=== PATIENT | female | born 1940 | race Caucasian/White ===

== ENCOUNTER 2019-05-28 07:50 | Inpatient (IN) ==
--- NOTE | 2019-05-28 07:58 | Emergency Department Note ---
Disposition Clinical Impression: Shortness of breath, Elevated troponin, Acute electrocardiogram changes Disposition: Admitted As Inpatient Referrals: Jerry De Leon DO [Primary Care Provider] - Forms: ED Satisfaction Letter Time of Disposition: 11:26 SOB HPI - General Chief Complaint: ED Shortness of Breath/Dyspnea Stated Complaint: shortness of breath Time Seen by Provider: 05/28/19 07:55 Source: patient, family Mode of arrival: ambulatory Limitations: no limitations Nursing Notes Reviewed: Yes Vital Signs Reviewed: Yes - History of Present Illness 78F with PMHx of HTN presents to the ED with worsening shortness of breath over the past several months. Pt states this morning when she got up to get out of bed she got more short of breath and was unable to catch her breath, therefore she got scared and had her family bring her into the emergency department. She has been dealing with a lot of stress over the past several months and just attended her 's yesterday. Patient denies having any chest pain at this time but does admit to chest tightness. She does not have any other known medical conditions. She denies fever, chills, recent illnesses, abdominal pain, nausea and vomiting. She has had a nonproductive cough on and off for the past several months. - Related Data Home Medications Medication Instructions Recorded Confirmed Hydrochlorothiazide 05/28/19 Lisinopril 05/28/19 Metoprolol 05/28/19 Allergies Allergy/AdvReac Type Severity Reaction Status Date / Time Penicillins Allergy Hives Verified 05/28/19 07:54 All systems ED: reviewed and negative except as stated. Review of Systems: As Per HPI Constitutional: Denies: fever, chills, weakness Cardiovascular: Reports: chest pain (tightness), dyspnea on exertion. Denies: palpitations, edema, paroxysmal nocturnal dyspnea Respiratory: Reports: cough, dyspnea. Denies: wheezes, sputum production Gastrointestinal: Denies: abdominal pain, nausea, vomiting, diarrhea Musculoskeletal: Denies: back pain, neck pain Integumentary: Denies: rash Endocrine: Reports: fatigue Past Medical History - Past Medical History Attestation: Yes The following information was validated with the patient. Source: patient Medical history: Reports: hypertension Physical Exam - General Limitations: no limitations General appearance: alert, anxious (tearful) - Head Head exam: atraumatic, normocephalic - Eye Eye exam: Present: normal appearance, PERRL, EOMI - Chest Chest inspection: Present: normal inspection. Absent: tenderness, rash - Respiratory Respiratory exam: Present: wheezes (mild end expiratory wheezes with good a iration). Absent: respiratory distress - Cardiovascular Cardiovascular exam: Present: regular rate, normal rhythm - Abdominal Exam Abdominal exam: Present: soft, Non-Tender. Absent: distention, guarding, rebound, rigidity - Extremities Exam Extremities exam: Present: normal inspection. Absent: tenderness, pedal edema, calf tenderness - Neurological Exam Neurological exam: Present: alert, oriented X3 - Psychiatric Psychiatric exam: Present: anxious (tearful) - Skin Skin exam: Present: warm, dry, intact Course Vital Signs Temperature 97.6 F 05/28/19 07:51 Pulse Rate 90 05/28/19 07:51 Respiratory Rate 20 05/28/19 07:51 Blood Pressure 206/131 05/28/19 07:51 O2 Sat by Pulse Oximetry 94 05/28/19 07:51 Temperature 97.6 F 05/28/19 08:20 Pulse Rate 56 05/28/19 11:17 Respiratory Rate 18 05/28/19 11:17 Blood Pressure 152/51 05/28/19 11:17 O2 Sat by Pulse Oximetry 95 05/28/19 11:17 Oxygen Delivery Oxygen Delivery Room Air Shortness of Breath/Dyspnea - [facility] [place] Narrative Medical decision making narrative: Patient presents with worsening shortness of breath with exertion over the past several months which acutely worsened today. We will obtain a cardiac workup. 845 - patient's troponin is elevated at 0.13 and BNP slightly elevated at 269. EKG shows a new left bundle-branch block when compared to previous EKG from 2007. We will consult with cardiology for help with management of this patient. 900 - spoke with Dr. Vargas who recommends a stat limited echocardiogram due to the patient's EKG changes and troponin. Chest x-ray shows acute on chronic pulmonary edema. All of the labs are within normal limits. We will administer a dose of Lasix, full strength aspirin and Heparin. Dr. Vargas states that if there are any wall motion abnormalities on the stat echo he will plan on taking the patient to the microbiological lab technician. 1046 - pts echo was read as normal. Spoke with Dr. Stephens and the patient has been accepted to the hospital pending the cat scan results. 1126 - CTA does not demonstrate PE. Pt will be admitted at this time - Medical Records Medical records reviewed: Yes I reviewed the patient's medical records. - Lab Data Lab results reviewed: Yes I reviewed the patient's lab results. Result diagrams: 05/28/19 08:19 05/28/19 08:19 Lab Results 05/28/19 05/28/19 05/28/19 Range/Units 08:19 08:19 08:19 WBC 8.2 (4.3-11.1) K/mcL RBC 3.90 (3.82-4.97) M/mcL Hgb 11.7 (11.5-15.4) g/dL Hct 35.4 (35.3-44.9) % MCV 90.8 (83.0-100.0) fL MCH 30.0 (28.0-33.3) pg MCHC 33.1 (31.6-35.5) g/dL RDW 13.7 (11.5-14.5) % Plt Count 281 (140-400) K/mcL MPV 10.5 (9.4-12.4) fL Immature Gran % 0.4 (0-4) % Seg Neutrophils % 55.2 % Lymphocytes % 32.3 % Monocytes % 7.6 % Eosinophils % 3.9 % Basophils % 0.6 % Neutrophils # 4.5 (1.6-8.9) K/mcL Lymphocytes # 2.6 (0.6-4.6) K/mcL Monocytes # 0.6 (0.0-1.3) K/mcL Eosinophils # 0.3 (0.0-0.6) K/mcL Basophils # 0.1 (0.0-0.2) K/mcL PT (9.4-12.1) Seconds INR D-Dimer (0-500) ng/mLFEU Heparin Anti-Xa, Unfract (0.30-0.70) IU/mL Sodium 140 (136-145) mEq/L Potassium 3.8 (3.5-5.1) mEq/L Chloride 104 (98-107) mEq/L Carbon Dioxide 27 (23-29) mEq/L BUN 24 H (8-23) mg/dL Creatinine 0.90 (0.60-1.20) mg/dL Est GFR ( Amer) > 60 (> 60) Est GFR (Non-Af Amer) > 60 (> 60) BUN/Creatinine Ratio 27 H (6-26) Glucose 166 H (70-105) mg/dL Calculated Osmolality 298 (280-300) Calcium 9.6 (8.6-10.3) mg/dL Troponin I 0.13 H* (< 0.04) ng/mL B-Natriuretic Peptide 269 H (Less than 100) pg/mL 05/28/19 Range/Units 08:19 WBC (4.3-11.1) K/mcL RBC (3.82-4.97) M/mcL Hgb (11.5-15.4) g/dL Hct (35.3-44.9) % MCV (83.0-100.0) fL MCH (28.0-33.3) pg MCHC (31.6-35.5) g/dL RDW (11.5-14.5) % Plt Count (140-400) K/mcL MPV (9.4-12.4) fL Immature Gran % (0-4) % Seg Neutrophils % % Lymphocytes % % Monocytes % % Eosinophils % % Basophils % % Neutrophils # (1.6-8.9) K/mcL Lymphocytes # (0.6-4.6) K/mcL Monocytes # (0.0-1.3) K/mcL Eosinophils # (0.0-0.6) K/mcL Basophils # (0.0-0.2) K/mcL PT 11.4 (9.4-12.1) Seconds INR 1.0 D-Dimer 2057 H (0-500) ng/mLFEU Heparin Anti-Xa, Unfract 0.03 L (0.30-0.70) IU/mL Sodium (136-145) mEq/L Potassium (3.5-5.1) mEq/L Chloride (98-107) mEq/L Carbon Dioxide (23-29) mEq/L BUN (8-23) mg/dL Creatinine (0.60-1.20) mg/dL Est GFR ( Amer) (> 60) Est GFR (Non-Af Amer) (> 60) BUN/Creatinine Ratio (6-26) Glucose (70-105) mg/dL Calculated Osmolality (280-300) Calcium (8.6-10.3) mg/dL Troponin I (< 0.04) ng/mL B-Natriuretic Peptide (Less than 100) pg/mL - Radiology Data Radiology results reviewed: Yes I reviewed the patient's radiology results. - EKG Data EKG attestation: Yes I reviewed and interpreted this EKG. EKG results narrative: EKG obtained at 809 on 05/28/2019 Heart 66 bpm, MN interval 23, QRS duration 166, QT 481, QTC 54 Sinus rhythm with left bundle branch block. No signs of ST segment elevations or depressions meeting sgarbossa criteria. Left bundle is new when compared to previous EKG dated 12/02/2007.
[2019-05-28 08:32] LABS: Basophils # 0.1 K/mcL (0.0-0.2); Basophils % 0.6 %; Eosinophils # 0.3 K/mcL (0.0-0.6); Eosinophils % 3.9 %; Hematocrit 35.4 % (35.3-44.9); Hemoglobin 11.7 g/dL (11.5-15.4); Immature Granulocytes % 0.4 % (0-4); Lymphocytes # 2.6 K/mcL (0.6-4.6); Lymphocytes % 32.3 %; Mean Corpuscular HGB Conc 33.1 g/dL (31.6-35.5); Mean Corpuscular Volume 90.8 fL (83.0-100.0); Mean Platelet Volume 10.5 fL (9.4-12.4); Monocytes # 0.6 K/mcL (0.0-1.3); Monocytes % 7.6 %; Neutrophils # 4.5 K/mcL (1.6-8.9); Platelet Count 281 K/mcL (140-400); Red Cell Distribution Width 13.7 % (11.5-14.5); Segmented Neutrophils % 55.2 %; White Blood Count 8.2 K/mcL (4.3-11.1)
[2019-05-28 08:52] LABS: BUN/Creatinine Ratio 27 (6-26); Blood Urea Nitrogen 24 mg/dL (8-23); Calcium 9.6 mg/dL (8.6-10.3); Carbon Dioxide 27 mEq/L (23-29); Chloride 104 mEq/L (98-107); Glucose 166 mg/dL (70-105); Osmolality,Calculated 298 (280-300); Potassium 3.8 mEq/L (3.5-5.1); Sodium 140 mEq/L (136-145); Troponin I 0.13 ng/mL (< 0.04); eGFR For African Americans > 60 (> 60); eGFR For Non-African Americans > 60 (> 60)
[2019-05-28] MEDS ORDERED: Aspirin 81 MG TAB.CHEW PO ONE (09:07)
[2019-05-28] MEDS ORDERED: Furosemide 20 MG/2 ML VIAL IVP ONE (09:07)
--- NOTE | 2019-05-28 09:10 | Emergency Department Note ---
Disposition Clinical Impression: Shortness of breath, Elevated troponin, Acute electrocardiogram changes Disposition: Admitted As Inpatient Condition: Fair Referrals: Jerry De Leon DO [Primary Care Provider] - Forms: ED Satisfaction Letter Time of Disposition: 11:40 General Adult HPI - General Chief complaint: ED Shortness of Breath/Dyspnea Stated complaint: shortness of breath Time Seen by Provider: 05/28/19 07:55 Source: patient, family Mode of arrival: ambulatory Limitations: no limitations Nursing Notes Reviewed: Yes Vital Signs Reviewed: Yes - History of Present Illness Pain Scale: 0 - Related Data Home Medications Medication Instructions Recorded Confirmed Hydrochlorothiazide 05/28/19 Lisinopril 05/28/19 Metoprolol 05/28/19 Allergies Allergy/AdvReac Type Severity Reaction Status Date / Time Penicillins Allergy Hives Verified 05/28/19 07:54 Constitutional: Denies: fever, chills, weakness Past Medical History - Past Medical History Medical history: Reports: hypertension Psychiatric history: Reports: no psych history - Social History Smoking Status: Never smoker Smokeless Tobacco Status: No Alcohol use: Reports: none Drug use: Reports: none Physical Exam - General Limitations: no limitations General appearance: alert Course Vital Signs Temperature 97.6 F 05/28/19 07:51 Pulse Rate 90 05/28/19 07:51 Respiratory Rate 20 05/28/19 07:51 Blood Pressure 206/131 05/28/19 07:51 O2 Sat by Pulse Oximetry 94 05/28/19 07:51 Temperature 97.6 F 05/28/19 08:20 Pulse Rate 56 05/28/19 11:17 Respiratory Rate 18 05/28/19 11:17 Blood Pressure 152/51 05/28/19 11:17 O2 Sat by Pulse Oximetry 95 05/28/19 11:17 Oxygen Delivery Oxygen Delivery Room Air Medical Decision Making - Lab Data Result diagrams: 05/28/19 08:19 05/28/19 08:19 Lab Results 05/28/19 05/28/19 05/28/19 Range/Units 08:19 08:19 08:19 WBC 8.2 (4.3-11.1) K/mcL RBC 3.90 (3.82-4.97) M/mcL Hgb 11.7 (11.5-15.4) g/dL Hct 35.4 (35.3-44.9) % MCV 90.8 (83.0-100.0) fL MCH 30.0 (28.0-33.3) pg MCHC 33.1 (31.6-35.5) g/dL RDW 13.7 (11.5-14.5) % Plt Count 281 (140-400) K/mcL MPV 10.5 (9.4-12.4) fL Immature Gran % 0.4 (0-4) % Seg Neutrophils % 55.2 % Lymphocytes % 32.3 % Monocytes % 7.6 % Eosinophils % 3.9 % Basophils % 0.6 % Neutrophils # 4.5 (1.6-8.9) K/mcL Lymphocytes # 2.6 (0.6-4.6) K/mcL Monocytes # 0.6 (0.0-1.3) K/mcL Eosinophils # 0.3 (0.0-0.6) K/mcL Basophils # 0.1 (0.0-0.2) K/mcL PT (9.4-12.1) Seconds INR D-Dimer (0-500) ng/mLFEU Heparin Anti-Xa, Unfract (0.30-0.70) IU/mL Sodium 140 (136-145) mEq/L Potassium 3.8 (3.5-5.1) mEq/L Chloride 104 (98-107) mEq/L Carbon Dioxide 27 (23-29) mEq/L BUN 24 H (8-23) mg/dL Creatinine 0.90 (0.60-1.20) mg/dL Est GFR ( Amer) > 60 (> 60) Est GFR (Non-Af Amer) > 60 (> 60) BUN/Creatinine Ratio 27 H (6-26) Glucose 166 H (70-105) mg/dL Calculated Osmolality 298 (280-300) Calcium 9.6 (8.6-10.3) mg/dL Troponin I 0.13 H* (< 0.04) ng/mL B-Natriuretic Peptide 269 H (Less than 100) pg/mL 05/28/19 Range/Units 08:19 WBC (4.3-11.1) K/mcL RBC (3.82-4.97) M/mcL Hgb (11.5-15.4) g/dL Hct (35.3-44.9) % MCV (83.0-100.0) fL MCH (28.0-33.3) pg MCHC (31.6-35.5) g/dL RDW (11.5-14.5) % Plt Count (140-400) K/mcL MPV (9.4-12.4) fL Immature Gran % (0-4) % Seg Neutrophils % % Lymphocytes % % Monocytes % % Eosinophils % % Basophils % % Neutrophils # (1.6-8.9) K/mcL Lymphocytes # (0.6-4.6) K/mcL Monocytes # (0.0-1.3) K/mcL Eosinophils # (0.0-0.6) K/mcL Basophils # (0.0-0.2) K/mcL PT 11.4 (9.4-12.1) Seconds INR 1.0 D-Dimer 2057 H (0-500) ng/mLFEU Heparin Anti-Xa, Unfract 0.03 L (0.30-0.70) IU/mL Sodium (136-145) mEq/L Potassium (3.5-5.1) mEq/L Chloride (98-107) mEq/L Carbon Dioxide (23-29) mEq/L BUN (8-23) mg/dL Creatinine (0.60-1.20) mg/dL Est GFR ( Amer) (> 60) Est GFR (Non-Af Amer) (> 60) BUN/Creatinine Ratio (6-26) Glucose (70-105) mg/dL Calculated Osmolality (280-300) Calcium (8.6-10.3) mg/dL Troponin I (< 0.04) ng/mL B-Natriuretic Peptide (Less than 100) pg/mL Critical Care Time Critical Care Time: Yes Total Critical Care Time: 35 Attestation: Critical care performed: Time is exclusive of separately billable procedures. Time includes: direct patient care, patient reassessment, coordination of patient care, interpretation of data (laboratory data, radiology data, and respiratory data), review of patient's medical records, medical consultation and documentation of patient care. Procedures included in critical care time: Procedures excluded from critical care time: Attestation Statement - Attestation Attestation: I examined this patient and my medical decision-making was reviewed with the Resident Physician. I agree with the documented findings, disposition and treatment plan as described except to the extent set forth below. Patient to the ED for shortness of breath. Patient's been short of breath for the past couple months. She has been preoccupied taking care of her dying . His was yesterday. She has had an increase in her shortness of breath and dyspnea on exertion. No history of heart failure. On examination she is in no acute distress. She is upset and tearful. Lungs are diminished but clear. No pedal edema. Plan. Cardiac workup. Patient with a new onset left bundle branch block. Her troponin is elevated platelet 3. She is reevaluated and is not having any chest pain. We did discuss the patient with cardiology who will see in consult. Aspirin given. We will admit to medicine. EKG was reviewed with the resident. CTA reviewed and negative for PE. Echocardiogram does not reveal any wall motion abnormalities that would be consistent with ischemia. Patient is admitted to medicine. Chest X-Ray 05/28/19 07:58 IMPRESSION: 1. Mild increased interstitial markings since prior examination for which an acute on chronic process cannot be excluded. D/ / Dory Eden MD / Dory Eden MD Interpreting Provider: Dory Eden MD Chest X-Ray 05/28/19 07:58 IMPRESSION: 1. Mild increased interstitial markings since prior examination for which an acute on chronic process cannot be excluded. D/ / Dory Eden MD / Dory Eden MD Interpreting Provider: Dory Eden MD Echocardiogram Limited Views 05/28/19 09:02 Impressions: LVEF 60-65%. Normal LV chamber size and function. Asymmetric hypertrophy of the basal septum. Atypical septal motion consistent with bundle branch block. Left Ventricular Wall Motion: Rest Echo Findings All wall segments showed normal motion. Findings: Study Quality * Technically adequate exam. ECG Findings * Sinus rhythm with BBB. Left Ventricle * LVEF 60-65%. * Normal LV chamber size and function. * Asymmetric hypertrophy of the basal septum. * Atypical septal motion consistent with bundle branch block. Right Ventricle * Normal right ventricular structure and function. Aorta * Normally sized aortic root. Pericardium * The pericardium appears normal. Chest CTA 05/28/19 09:56 IMPRESSION: 1. No evidence of pulmonary embolism 2. Findings compatible with interstitial pulmonary edema and trace pleural effusions D/ / Deuce Nielsen MD / Deuce Nielsen MD Interpreting Provider: Deuce Nielsen MD
[2019-05-28] MEDS ORDERED: *HR* Heparin 5,000 UNIT/ML VIAL IVP PRN ×2 (09:12)
[2019-05-28] MEDS ORDERED: *HR* Heparin 5,000 UNIT/ML VIAL IVP ONE (09:12)
[2019-05-28 09:34] LABS: Heparin anti-factor XA UFH 0.03 IU/mL (0.30-0.70)
[2019-05-28 09:35] LABS: Prothrombin Time 11.4 Seconds (9.4-12.1)
[2019-05-28] MEDS ORDERED: Perflutren Lipid Microsphere 1.3 ML in 0.9 % Sodium Chloride 8.7 ML IVP ONE (09:40)
[2019-05-28] MEDS ORDERED: 0.9 % Sodium Chloride 250 ML ONE (09:49)
[2019-05-28] MEDS ORDERED: Isovue-370 500 ML BOTTLE IVP ONE (09:56)
[2019-05-28] MEDS: Heparin 25,000 UNIT/250 ML D5W 25,000 UNIT/250 ML IV.SOLN IVC SCH (10:04)
[2019-05-28] MEDS ORDERED: Ondansetron 4 MG/2 ML VIAL IVP PRN (11:39)
[2019-05-28] MEDS ORDERED: *HR* HYDROcodone/Acet 5/325 mg TABLET PO PRN (11:39)
[2019-05-28] MEDS ORDERED: Acetaminophen 325 MG TABLET PO PRN (11:39)
[2019-05-28] MEDS ORDERED: Naloxone 0.4 MG/ML INJ IVP PRN (11:39)
--- NOTE | 2019-05-28 11:51 | Internal Med History&Physical ---
Date of Encounter: 05/28/19 Time of Encounter: 11:48 Internal Medicine - H&P: HPI Chief complaint: SOB Admitted From: Emergency Dept History of present illness: Keeley Chan is a 78 F w hx HTN, obesity, who p/w SOB. Symptoms started several months ago but are acutely worse today. Pt woke up this AM w SOB, and with any exertion became profoundly dyspneic and thus her family brought her to ED. For background, her 's was yesterday, and the patient is certainly sad/upset/anxious about that. However, she and her daughter report months (probably closer to a year) of getting winded with exertion, specifically being unable to get around the hallways in the hospital last year when first hospitalized, and progressively worsening slowly since. She specifically denies any chest pain or tightness, but does state that with exertion like cooking she'll break out into drenching sweats and sometimes has mild nausea with it. Denies pedal edema. Does have dry cough which she thinks is from her lisinopril. No fevers, vomiting, abd pain, rash. In the ED, vitals T 97.6, HR 90, RR 20, SBP 206, satting 94+% on RA. ECG w new LBBB when compared to prior >10y ago. CXR shows increased interstitial markings suggestive of possible edema. Labs notable for Hb 12, INR 1, D-dimer 2000, BUN 24, Cr 0.9, BG 166, Trop 0.13, BNP 270. Follow up CTPE unremarkable for PE but does suggest mild pulmonary edema and trace b/l pleural effusions. Pt seen by cardio in ED, who rec'd starting hep gtt and admit for gentle diuresis and likely LHC in 1-2 days. Past medical, surgical, social, and family histories reviewed and updated as below. Past Med Surg Social Fam HX - Past Medical History Medical history: hypertension Psychiatric history: no psych history - Social History Smoking Status: Never smoker Smokeless Tobacco Status: No Alcohol use: none Drug use: none - Family History Mother Living Status: Hx Family Cancer: Yes Hx Family Endocrine Disorder: Yes Father Living Status: Hx Family Cardiac Disorders: Yes Internal Medicine - H&P: Meds Aspirin [Lo-Dose Aspirin EC] 81 mg PO DAILY 05/28/19 [History] Calcium Carbonate [Calcium] 500 mg PO DAILY 05/28/19 [History] Lisinopril [Zestril] 40 mg PO DAILY 05/28/19 [History] Metoprolol Succinate [Toprol Xl] 50 mg PO DAILY 05/28/19 [History] hydroCHLOROthiazide [Hydrochlorothiazide] 25 mg PO DAILY 05/28/19 [History] Allergy/AdvReac Type Severity Reaction Status Date / Time Penicillins Allergy Hives Verified 05/28/19 12:31 All Systems PM: A 10-system review of systems was performed and is negative for pertinent findings except as documented above in the HPI. - Constitutional Vitals: Temp Pulse Resp BP Pulse Ox 97.6 F 56 18 152/51 95 05/28/19 08:20 05/28/19 11:17 05/28/19 11:17 05/28/19 11:17 05/28/19 11:17 Exam: General: NAD, AAOx3, good eye contact, visibly anxious, occasional audible whe ezing and tachypneic although not working to breathe Head: Atraumatic, normocephalic. Face symmetric Eyes: EOMI, sclerae anicteric ENT: Mucous membranes moist. Normal oral mucosa. Trachea midline. Thoracic: No visible chest wall deformities. Normal breath sounds b/l, no wheezing or crackles Cardio: Normal S1 and S2, regular rate and rhythm, no murmurs. No JVD Abdomen: Soft, nontender, nondistended. Bowel sounds present. Extremities: Warm, well perfused. DP pulses 2+ b/l. No clubbing, cyanosis. Mild nonpitting edema b/l legs Skin: Intact. No rashes, bruises, or ulcers Neuro: Awake, fully oriented. Good memory, concentration, attention. Speech fluent. CN II-XII grossly intact. Strength 5/5 in b/l UE and LE Internal Med - H&P Results - Labs CBC & Chem 7: 05/28/19 08:19 05/28/19 08:19 Labs: Short CBC 05/28/19 Range/Units 08: WBC 8.2 (4.3-11.1) K/mcL Hgb 11.7 (11.5-15.4) g/dL Hct 35.4 (35.3-44.9) % Plt Count 281 (140-400) K/mcL Neutrophils # 4.5 (1.6-8.9) K/mcL BMP 05/28/19 08:19 Sodium 140 Potassium 3.8 Chloride 104 Carbon Dioxide 27 BUN 24 H Creatinine 0.90 Glucose 166 H Calcium 9.6 Cardiac Enzymes 05/28/19 Range/Units 08:19 Troponin I 0.13 H* (< 0.04) ng/mL - Impressions ITS Impressions Chest X-Ray 05/28/19 07:58 IMPRESSION: 1. Mild increased interstitial markings since prior examination for which an acute on chronic process cannot be excluded. D/ / Dory Eden MD / Dory Eden MD Interpreting Provider: Dory Eden MD Echocardiogram Limited Views 05/28/19 09:02 Impressions: LVEF 60-65%. Normal LV chamber size and function. Asymmetric hypertrophy of the basal septum. Atypical septal motion consistent with bundle branch block. Left Ventricular Wall Motion: Rest Echo Findings All wall segments showed normal motion. Findings: Study Quality * Technically adequate exam. ECG Findings * Sinus rhythm with BBB. Left Ventricle * LVEF 60-65%. * Normal LV chamber size and function. * Asymmetric hypertrophy of the basal septum. * Atypical septal motion consistent with bundle branch block. Right Ventricle * Normal right ventricular structure and function. Aorta * Normally sized aortic root. Pericardium * The pericardium appears normal. Chest CTA 05/28/19 09:56 IMPRESSION: 1. No evidence of pulmonary embolism 2. Findings compatible with interstitial pulmonary edema and trace pleural effusions D/ / Deuce Nielsen MD / Deuce Nielsen MD Interpreting Provider: Deuce Nielsen MD - Summary of Assessment and Plan Summary of Assessment and Plan: Keeley Chan is a 78 F w hx HTN, obesity, who p/w SOB, ECG w new LBBB, and elevated trop, c/w NSTEMI, and also MINAYA, elevated BNP, and imaging showing pulm edema, c/w acute CHF. NSTEMI: ECG w new LBBB, trop elevated to 0.13. Stat TTE shows no WMA. - trend trops - check lipids, A1c - tele - ASA given - nitro SL prn pain - hep gtt - start lipitor 80 - continue home toprol 50, lisinopril 40 - Cardio consult for [facility] Acute HFpEF: - lasix 20 iv x1 per cardio and reassess later today HTN: uncontrolled, resume home meds today Obesity: BMI 35 PPx: hep gtt Tele: yes Activity: up ad nathan FEN: cardiac then NPO@MN, no MIVF Lines: PIV Consults: Cardio Code: Full Dispo: patient requires inpatient eval and management at this time, anticipate 2-3 days, will be homegoing
[2019-05-28] MEDS: Metoprolol XL (24 HR) Succ 50 MG TAB.ER.24H PO SCH (12:33)
[2019-05-28] MEDS: Lisinopril 20 MG TABLET PO SCH (12:33)
--- NOTE | 2019-05-28 13:56 | Cardiology Consult Note ---
Date of Encounter: 05/28/19 Time of Encounter: 13:52 Assessment and Plan (1) Shortness of breath Current Visit: Yes Status: Acute Possible angina equivalent with new EKG changes yet echocardiogram shows preserved ejection fraction. Gentle diuresis for mild pulmonary edema on chest x-ray in anticipation of possible LHC (2) Elevated troponin Current Visit: Yes Status: Acute Possible demand ischemia from shortness of breath and respiratory distress versus primary ischemia, we will trend cardiac enzymes. Echo shows preserved ejection fraction with no regional wall motion abnormalities. Once euvolemic patient likely will require an LHC prior to discharge. Start IV heparin ACS protocol Discussion w patient/family: The assessment and plan as outlined above was discussed with the patient and/or family members who expressed understanding and agreement. All questions were answered. Thank you for involving us in the care of your patient. Please call with any questions. History of Present Illness Consult date: 05/28/19 Consult reason: SOB Chief complaint: SOB History of present illness: Ms. Chan is a 78 year old female with no significant cardiac risk factors presents to the emergency department with increasing shortness of breath in the last few weeks with new onset of chest pain on arrival to the emergency department. Patient was noted to have a left bundle-branch block with no recent EKG compared to. A stat echocardiogram was obtained in the emergency department which showed a preserved ejection fraction hence patient was not taken emergently to the cardiac Stock Mover. Patient is significantly short of breath and in respiratory distress with a mildly elevated BNP and a troponin of 0.13. She is very anxious and likely is unable to lay flat with some mild pulmonary edema on her chest x-ray. We will continue to trend cardiac enzymes and diuresis gently to euvolemia and consider LHC when able to tolerate procedure. Patient also states chest pain has resolved yet she continues to be short of breath. Will follow-up with a stat troponin and next few hours to evaluate not trend of her troponins. Meanwhile patient will be diuresed in anticipation of a possible LHC Past Med Surg Social Fam HX - Past Medical History Medical history: arthritis, cancer, hypertension Psychiatric history: anxiety, depression - Past Surgical History Surgical History: cholecystectomy Additional surgical history: carpel tunnel, heart surgery, lumpectomy to left breast, lump removed from neck - Social History Smoking Status: Never smoker Smokeless Tobacco Status: No Alcohol use: none Drug use: none - Family History Mother Living Status: Hx Family Cancer: Yes Hx Family Endocrine Disorder: Yes Father Living Status: Hx Family Cardiac Disorders: Yes Medications and Allergies Aspirin [Lo-Dose Aspirin EC] 81 mg PO DAILY 05/28/19 [History] Calcium Carbonate [Calcium] 500 mg PO DAILY 05/28/19 [History] Lisinopril [Zestril] 40 mg PO DAILY 05/28/19 [History] Metoprolol Succinate [Toprol Xl] 50 mg PO DAILY 05/28/19 [History] hydroCHLOROthiazide [Hydrochlorothiazide] 25 mg PO DAILY 05/28/19 [History] Allergy/AdvReac Type Severity Reaction Status Date / Time Penicillins Allergy Hives Verified 05/28/19 12:31 All Systems Review: The remainder of the systems were reviewed and are negative Physical Examination Vital Signs, Last 4 Hours Temp Pulse Resp BP Pulse Ox 05/28/19 12:24 97.8 F 64 18 185/71 96 05/28/19 11:17 56 18 152/51 95 05/28/19 10:03 61 18 166/50 99 05/28/19 09:52 91 18 164/58 100 General: Conversant, No Apparent Distress HEENT: Atraumatic, Normocephaly, Mucus Membranes Moist Neck: No JVD, Normal carotid pulses Cardiac: Reg Rate and Rhythm, Normal S1 and S2, No Murmur Lungs: Normal Breath Sounds (Diminished air entry bibasilar), No Wheeze, Rales, Rhonchi Neuro: Alert and responsive, No focal deficits noted Abdomen: Soft, Non-Tender Skin: No rashes noted on visualized skin Musculoskeletal: No Chest Wall Tenderness Extremities: No Clubbing, No Cyanosis, No Edema, Normal Pulses Results 05/28/19 08:19 05/28/19 08:19 Lab Results 05/28/19 05/28/19 05/28/19 08:19 08:19 08:19 WBC 8.2 Hgb 11.7 Hct 35.4 Plt Count 281 INR D-Dimer Sodium 140 Potassium 3.8 Chloride 104 Carbon Dioxide 27 BUN 24 H Creatinine 0.90 Glucose 166 H Calcium 9.6 Troponin I 0.13 H* B-Natriuretic Peptide 269 H 05/28/19 08:19 WBC Hgb Hct Plt Count INR 1.0 D-Dimer 2057 H Sodium Potassium Chloride Carbon Dioxide BUN Creatinine Glucose Calcium Troponin I B-Natriuretic Peptide Consult Discharge Plan - Plan Referrals: Jerry De Leon DO [Primary Care Provider] -
--- NOTE | 2019-05-28 16:21 | Electrocardiograph Report ---
[place] [id number] Test Date: 2019-05-28 Pat Name: Keeley Chan Department: EXAM1 Room: 2NE19 Gender: F Transaction Coordinator: : 1940 Requested By: Mariposa Swartz Order Number: [id number] Reading MD: Abdirahman Jama Measurements Intervals Russell Rate: 66 P: 64 WI: 203 QRS: 34 QRSD: 166 T: 142 QT: 481 QTc: 504 Interpretive Statements Sinus rhythm Left bundle branch block Electronically Signed On 05-28-2019 16:19:29 EDT by Abdirahman Jama
[2019-05-29 03:50] LABS: Hematocrit 33.4 % (35.3-44.9); Mean Corpuscular HGB Conc 32.9 g/dL (31.6-35.5); Mean Corpuscular Hemoglobin 29.7 pg (28.0-33.3); Mean Corpuscular Volume 90.3 fL (83.0-100.0); Mean Platelet Volume 10.7 fL (9.4-12.4); Platelet Count 258 K/mcL (140-400); Red Cell Distribution Width 13.9 % (11.5-14.5); White Blood Count 10.2 K/mcL (4.3-11.1)
[2019-05-29 04:03] LABS: INR 1.1; Prothrombin Time 12.1 Seconds (9.4-12.1)
[2019-05-29 04:05] LABS: Activated Partial Thrombo Time 86.9 Seconds (26.0-36.0)
[2019-05-29 04:10] LABS: BUN/Creatinine Ratio 23 (6-26); Blood Urea Nitrogen 21 mg/dL (8-23); Calcium 9.1 mg/dL (8.6-10.3); Carbon Dioxide 27 mEq/L (23-29); Chloride 103 mEq/L (98-107); Chol/HDL Ratio 3.7 (0-4.9); Cholesterol 148 mg/dL (< 200); Glucose 145 mg/dL (70-105); HDL Cholesterol 40 mg/dL (40-59); LDL Cholesterol,Calculated 83 mg/dL (0-99); Magnesium 1.7 mg/dL (1.6-2.6); Osmolality,Calculated 294 (280-300); Potassium 3.6 mEq/L (3.5-5.1); Sodium 139 mEq/L (136-145); Triglycerides 123 mg/dL (< 150); eGFR For African Americans > 60 (> 60); eGFR For Non-African Americans 59 (> 60)
[2019-05-29 05:10] LABS: Estimated Average Glucose 209 mg/dl
[2019-05-29] MEDS ORDERED: Furosemide 20 MG/2 ML VIAL IVP ONE (08:24)
[2019-05-29] MEDS: Lisinopril 20 MG TABLET PO SCH (08:25)
[2019-05-29] MEDS: Aspirin Enteric Coated 81 MG Tablet PO SCH (08:25)
[2019-05-29] MEDS: Metoprolol XL (24 HR) Succ 50 MG TAB.ER.24H PO SCH (08:25)
[2019-05-29] MEDS ORDERED: Dextrose Gel 15 GM/37.5 ML TUBE PO PRN ×2 (08:49)
[2019-05-29] MEDS ORDERED: D5% in Water 1,000 ML IVC PRN (08:49)
[2019-05-29] MEDS ORDERED: *HR* Dextrose 50 % in Water (Syg) 50 ML SYRINGE IVP PRN (08:49)
[2019-05-29] MEDS: Heparin 25,000 UNIT/250 ML D5W 25,000 UNIT/250 ML IV.SOLN IVC SCH (09:23)
--- NOTE | 2019-05-29 09:25 | Internal Med Progress Note ---
Hospitalist Progress Note - Encounter Date of Encounter: 05/29/19 Time of Encounter: 08:15 - Subjective Interval History: H&P reviewed. 78-year-old female with Hx of HTN and obesity is admitted due to dyspnea on exertion and was found to have elevated troponin and mild decompensated heart failure. EKG showed new LBBB but the comparison EKG was done > 10 years ago. Feels marginally better after a dose of Lasix. Denies any chest pain, palpitation, lightheadedness, or nausea/vomiting. No fever overnight. - Exam Vitals: Temp Pulse Resp BP Pulse Ox 97.8 F 62 18 190/85 97 05/29/19 06:55 05/29/19 06:55 05/29/19 06:55 05/29/19 06:55 05/29/19 06:55 Exam: General: Alert and oriented, mild distress but able to speak in full sentences Cardiovascular:Normal S1 & S2, No JVD. Pulse regular. Lungs: Mild bibasilar crackles Abdomen:Soft, non-tender, no rigidity. Extremities:No deformity or swelling Neurological:Normal cognition and motor skills. Non-focal - Assessment and Plan (1) Elevated troponin Current Visit: Yes Status: Acute Assessment and Plan: Presented with acute on chronic dyspnea on exertion and was found to have mildly elevated trop of 0.13-0.13-0.16-0.17 EKG showed new LBBB but the comparison is from > 10 years ago echocardiogram showed preserved EF Started on hep gtt, continue. On aspirin, statin, beta yosef. appreciate cardiology input, for possible C today (2) Heart failure Current Visit: Yes Status: Acute Assessment and Plan: Echocardiogram results as above given 1 dose of IV Lasix, will continue IV 20mg QD (3) Accelerated hypertension Current Visit: Yes Status: Acute Assessment and Plan: Likely cause of elevated troponin and decompensated heart failure home meds resumed, will add norvasc 5mg as well PRN labetalol (4) Newly diagnosed diabetes Current Visit: Yes Status: Acute Assessment and Plan: A1c 8.9 Started on low-dose sliding scale. Will likely discharge on metformin. Diabetic education provided (5) Obesity (BMI 30.0-34.9) Current Visit: Yes Status: Chronic Assessment and Plan: Lifestyle modifications emphasized (6) DVT prophylaxis Current Visit: Yes Status: Acute Assessment and Plan: On heparin drip - Time Spent with Patient Total time spent is greater than 50% in coordination of care (as documented) at patient's floor/unit and/or counseling patient: 25 - 35 minutes Plan of Care Discussed with: patient Internal Medicine: Result - Labs CBC & Chem 7: 05/29/19 03:33 05/29/19 03:33 Labs: Short CBC 05/29/19 Range/Units 03:33 WBC 10.2 (4.3-11.1) K/mcL Hgb 11.0 L (11.5-15.4) g/dL Hct 33.4 L (35.3-44.9) % Plt Count 258 (140-400) K/mcL BMP 05/29/19 03:33 Sodium 139 Potassium 3.6 Chloride 103 Carbon Dioxide 27 BUN 21 Creatinine 0.92 Glucose 145 H Calcium 9.1 Cardiac Enzymes 05/28/19 05/28/19 05/29/19 Range/Units 14:39 20:26 03:33 Troponin I 0.13 H* 0.16 H* 0.17 H* (< 0.04) ng/mL - ABG Interpretation ABG results: PT/INR, D-dimer PT 12.1 Seconds (9.4-12.1) 05/29/19 03:33 D-Dimer 2057 ng/mLFEU (0-500) H 05/28/19 08:19 - Impressions Impressions Echocardiogram Limited Views 05/28/19 09:02 Impressions: LVEF 60-65%. Normal LV chamber size and function. Asymmetric hypertrophy of the basal septum. Atypical septal motion consistent with bundle branch block. Left Ventricular Wall Motion: Rest Echo Findings All wall segments showed normal motion. Findings: Study Quality * Technically adequate exam. ECG Findings * Sinus rhythm with BBB. Left Ventricle * LVEF 60-65%. * Normal LV chamber size and function. * Asymmetric hypertrophy of the basal septum. * Atypical septal motion consistent with bundle branch block. Right Ventricle * Normal right ventricular structure and function. Aorta * Normally sized aortic root. Pericardium * The pericardium appears normal. Chest CTA 05/28/19 09:56 IMPRESSION: 1. No evidence of pulmonary embolism 2. Findings compatible with interstitial pulmonary edema and trace pleural effusions D/ / Deuce Nielsen MD / Deuce Nielsen MD Interpreting Provider: Deuce Nielsen MD - VTE Documentation of Mechanical Device: Intermittent pneumatic compression device Consult Discharge Plan - Plan Referrals: Jerry De Leon DO [Primary Care Provider] - (2) Heart failure Qualifiers: Heart failure type: diastolic Heart failure chronicity: acute Qualified Code(s): I50.31 - Acute diastolic (congestive) heart failure
[2019-05-29] MEDS ORDERED: *HR* Labetalol 20 MG/4 ML SYRINGE IVP PRN (09:30)
[2019-05-29] MEDS ORDERED: amLODIPine 5 MG TABLET PO SCH (09:30)
--- NOTE | 2019-05-29 10:01 | Event Note ---
Date of Encounter: 05/29/19 Time of Encounter: 09:00 - Cardiology Event Note Laboratory Tests 05/28/19 05/28/19 05/28/19 08:19 08:19 14:39 Hgb Hct INR D-Dimer 2057 H Creatinine Est GFR (Non-Af Amer) Troponin I 0.13 H* 0.13 H* B-Natriuretic Peptide LDL Cholesterol, Calc 05/28/19 05/29/19 05/29/19 20:26 03:33 03:33 Hgb 11.0 L Hct 33.4 L INR 1.1 D-Dimer Creatinine Est GFR (Non-Af Amer) Troponin I 0.16 H* B-Natriuretic Peptide LDL Cholesterol, Calc 05/29/19 05/29/19 05/29/19 03:33 03:33 03:33 Hgb Hct INR D-Dimer Creatinine 0.92 Est GFR (Non-Af Amer) 59 L Troponin I 0.17 H* B-Natriuretic Peptide 247 H LDL Cholesterol, Calc 83 CTA: IMPRESSION: 1. No evidence of pulmonary embolism 2. Findings compatible with interstitial pulmonary edema and trace pleural effusions Peak trop 0.17, new finding of LBBB. Echo: Impressions: LVEF 60-65%. Normal LV chamber size and function. Asymmetric hypertrophy of the basal septum. Atypical septal motion consistent with bundle branch block. Left Ventricular Wall Motion: Rest Echo Findings All wall segments showed normal motion. Discussed and reviewed with Dr. Vargas, recommendations for left heart catheterization. I had lengthy discussion with patient and daughter and they are agreeable to proceed. All questions answered. We will optimize blood pressure medicines for blood pressure control.
[2019-05-29] MEDS ORDERED: amLODIPine 5 MG TABLET PO ONE (10:25)
[2019-05-29] MEDS ORDERED: Heparin 1,000 UNITS/500 mL 500 ML ONE (10:55)
[2019-05-29] MEDS ORDERED: Iopamidol 125 ML INFUS..BTL ONE (10:55)
[2019-05-29] MEDS ORDERED: 0.9 % Sodium Chloride 1,000 ML ONE (10:55)
[2019-05-29] MEDS ORDERED: *HR* Heparin 10,000 UNIT/10 ML VIAL ONE (10:55)
[2019-05-29] MEDS ORDERED: Nitroglycerin 1,000 MCG/10 ML VIAL IV ONE (10:55)
[2019-05-29] MEDS ORDERED: *HR* Midazolam HCl 2 MG/2 ML VIAL ONE (11:03)
[2019-05-29] MEDS ORDERED: *HR* FentaNYL (PF) 100 MCG/2 ML VIAL ONE (11:03)
--- NOTE | 2019-05-29 11:21 | Pre-Sedation Evaluation ---
Pre-sedation evaluation - Pre-sedation checklist Date of procedure: 05/29/19 Procedure: Heart Cath Recent Vitals: Last Vital Signs Temp 97.8 F 05/29/19 06:55 Pulse 62 05/29/19 06:55 Resp 18 05/29/19 06:55 BP 190/85 05/29/19 06:55 Pulse Ox 97 05/29/19 06:55 H&P (including ROS) documented in medical record: Yes Previous reaction to sedatives/anesthetics: No Dietary Status: NPO after Midnight Airway Assessment: Patient can open mouth completely, TMJ function normal ASA Classification *see protocol: CLASS II-Mild systemic disease Plan of Care: Pt appropriate candidate for procedure/moderate/conscious sedation, Risks/benefits of procedure/sedation discussed w/ patient/family Cardiac Registry (Cardio Only) - Functional Capacity Functional Capacity: >=4 METS with symptoms - Clincal Frailty Scale Clinical Frailty Scale: Managing Well
[2019-05-29] MEDS: Insulin LISPRO 300 UNITS/3 ML VIAL SQ SCH ×2 (11:44→17:13)
--- NOTE | 2019-05-29 11:56 | Invasive Diagnostic Lab Proc ---
Name: Keeley Chan Date of Study: 05/29/2019 Date: 1940 Ht: 65.0in Medical Record#: [id number] Age: 78 Wt: 207.23lb Gender: Female BSA: 2.01 Order #: [id number] BMI: 34.53 Physicians Procedure Physician: Deny Haji MD, FACC Referring MD: Referring MD: Staff Name Position Time In Shara Garcia RT (R) Monitor 11:09 AM Jose Augustin RN Aquatic Facility Manager 11:09 AM Angie Cordero RT (R) Scrub 11:09 AM Hayley Anderson RT (R) Monitor 11:09 AM Jovon Bridges RN Aquatic Facility Manager 11:09 AM Procedures Performed Procedure L HRT ARTERY/VENTRICLE ANGIO Pre-Procedure Checklist Informed consent is complete signed and on chart. H&P is on chart. ID band is on and ID verified with patient. Patient NPO for procedure The procedure was described for the patient and questions were answered. Blood Pressure: 190/85 ECG is on chart. Rhythm: bundle branch block Plan of Care Patient will tolerate the procedure without complications. Adequate level of comfort will be maintained. Hemodynamics will remain stable Patient will recover from procedure without complications. Respiratory function will be maintained. Cardiac rhythm will remain stable. Patient temperature will be maintained. Patient and/or family have verbalized understanding of the procedure. Patient Education Chief Complaint/Reason for Test: Cardiac Cath Developmental Category: Geriatric (65+ years) Developmentally Appropriate for Age: Yes Learning Barriers: None Education Needs: Procedure Education Method: Verbal Information Taught: Cardiac Cath Educational Evaluation: Able to repeat information Intravenous Access Time IV Size Location DC'd Fluid/Drip Rate Units RN 10:14 AM 18g 1 1/4" Patent On Arrival Lt Antecubital 0.9NaCl Jose Augustin RN 10:14 AM 20g 1 1/4" Patent On Arrival Rt Wrist Jose Augustin RN Allergies Penicillin Penicillins Vital Signs Time BP (mmHg) HR (bpm) O2 Sat. RR (bpm) LOC 10:15 AM 190 / 85 62 97 % 18 5 = Fully awake and oriented or at pre-proc level 11:18 AM / % 5 = Fully awake and oriented or at pre-proc level 11:18 AM / % 4 = Oriented but drowsy 11:18 AM 121 / 102 65 100 % 15 11:24 AM 191 / 75 56 100 % 18 11:28 AM 165 / 67 50 100 % 17 11:33 AM 164 / 71 52 100 % 18 11:38 AM 159 / 69 55 99 % 18 Procedural Medications Time Medication Dose Units Method Given By 11:18 AM Oxygen 4 L/min nasal cannula Jose Augustin RN 11:18 AM Versed 2 mg Intravenous Jose Augustin RN 11:18 AM Fentanyl 50 mcg Intravenous Jose Augustin RN 11:31 AM Lidocaine 2% 0.5 ml Subcutaneous Deny Haji MD, [facility] 11:32 AM Heparin 2000 units Nitroglycerin 200 mcg Verapamil 2.5 mg Intraarterial Deny Haji MD, [facility] ASA Classification: CLASS II- Mild systemic disease (i.e. well-controlled diabetes, hypertension, asthma, cigarette smoking) Farhat Score Preprocedure Postprocedure Activity 2- Moves 4 extremities sustained head lift Activity 2- Moves 4 extremities sustained head lift Circulation 2- SBP +/= 20 points of pre-anesthetic level Circulation 2- SBP +/= 20 points of pre-anesthetic level Consciousness 2- Awake and alert oriented x 3 Consciousness 2- Awake and alert oriented x 3 O2 Saturation 2- Able to maintain O2 satruation of 92% on room air O2 Saturation 2- Able to maintain O2 satruation of 92% on room air Respiratory 2- Able to deep breathe and cough well Respiratory 2- Able to deep breathe and cough well Total Score 10 Total Score 10 Contrast Agent: Isovue Diagnostic Contrast: 59 ml Total Contrast: 59 ml Fluoro Dose: 19 mGy Procedure Log Time Note Enter By 11:09 AM Pt arrived to labor utilization superintendent 2 at 11: 11: AM Patient charges- Angio tray pack, Navilyst 3mm J, Pulse Oximetry and ACIST tubing and transducer twilson 11: AM Physician arrived 11: 11:09 AM Endy and bg completed 11: AM Sign in performed according to hospital policy. Informed consent was obtained. 11: AM Case Delayed no 11: AM Shara Garcia RT (R) Position: Monitor Time in: : 11:09 AM Jose Augustin RN Position: Aquatic Facility Manager Time in: : 11:09 AM Angie Cordero RT (R) Position: Scrub Time in: :09 twilson 11: AM Hayley Anderson RT (R) Position: Monitor Time in: : twilson 11:10 AM CathStat 11:17 AM Vitals capture started with the following parameters, Patient=Adult, Interval=5 min, Initial Nllusept=399 mmHg, Deflation Rate=3 mmHg, Cuff placed on Right Arm 11:18 AM HR=65 bpm, ZRBF=354/102 mmhg, BaL5=898.0 %, Resp=15 B/min 11:18 AM Recorded ECG: HR=66 Condition=Condition 1 : AM Procedure start : twilson : AM Time: :18 Patient comfortable and pain free: Yes twilson : AM Time: :18LOC: 5 = Fully awake and oriented or at pre-proc level twilson : AM Time: :18 Oxygen on at 4 L/min per nasal cannula by Jose [facility]in [facility] : AM Time: 18 Versed 2 mg Intravenous Given by Jose Augustin [facility] : AM Time: :18 Fentanyl 50 mcg Intravenous Given by Jose Augustin [facility] 11: AM ASA Class CLASS II- Mild systemic disease (i.e. well-controlled diabetes, hypertension, asthma, cigarette smoking) twilson 11:19 AM Hair removed from procedure site in procedure lab using clippers. Right wrist and Right groin prepped with Chloraprep by Augusta Camacho RN, then patient was draped. Skin intact. twilson 11:24 AM HR=56 bpm, EDZJ=432/75 mmhg, TlE7=425.0 %, Resp=18 B/min 11:28 AM Pressure channel 1 zeroed. 11:28 AM HR=50 bpm, ENOB=291/67 mmhg, ZeT1=831.0 %, Resp=17 B/min 11:30 AM Time out was performed according to hospital policy. Conscious sedation and anesthesia was achieved (see medication log with in this report above) twilson 11: AM Time: 11: 0.5 ml Lidocaine 2% to right radial Subcutaneous Given by Deny Haji MD, [facility] twilson 11:32 AM Access obtained by percutaneous puncture. 5/6Fr 10cm Terumo [place] sheath placed in right Radial artery. [id number] twilson 11:32 AM Time: 11:32 Patient given 2,000 units Heparin, 200 mcg Nitroglycerin, and 2.5 mg Verapamil Intraarterial by Deny Haji MD, [facility]. This is given to reduce risk of vessel spasm and thrombosis. twilson 11:33 AM HR=52 bpm, ZXBG=096/71 mmhg, WwL2=565.0 %, Resp=18 B/min 11:33 AM Time: 11:18LOC: 4 = Oriented but drowsy twilson 11:33 AM Time: 11:18 Patient comfortable and pain free: Yes twilson 11:34 AM 5Fr TIG catheter inserted over the wire DNC twilson 11:34 AM Recorded Pressure: Ao, HR=64, Condition=Condition 1 (Aorta) Ao 131/62/91 11:34 AM Wire removed twilson 11:35 AM Recorded Pressure: Ao, HR=58, Condition=Condition 1 (Aorta) Ao 136/64/94 11:35 AM LCA angiography performed in multiple views. twilson 11:35 AM Recorded Pressure: Ao, HR=56, Condition=Condition 1 (Aorta) Ao 127/60/88 11:37 AM RCA angiography performed in multiple views. twilson 11:37 AM Recorded Pressure: Ao, HR=65, Condition=Condition 1 (Aorta) Ao 150/76/108 11:38 AM Wire reinserted twilson 11:38 AM Catheter removed twilson 11:38 AM 5Fr Pigtail catheter inserted over the wire DN twilson 11:38 AM HR=55 bpm, GBOQ=142/69 mmhg, SpO2=99.0 %, Resp=18 B/min 11:39 AM Pressure channel 1 zero failed. 11:39 AM Recorded Pressure: LV, HR=60, Condition=Condition 1 (Left Ventricle) LV 148/4/11 11:39 AM Catheter crossed the aortic valve and was selectively placed in the left ventricle. Pressures recorded on pullback for left heart catheterization. twilson 11:39 AM Wire removed twilson 11:39 AM Bolus angiogram of left Ventricle complete: 10 ml/sec for a total of 20 mls twilson 11:39 AM Recorded Pressure: LV, Ao, HR=57, Condition=Condition 1 (Left Ventricle) LV 153/6/12, (Aorta) Ao 149/44/84 11:40 AM Wire reinserted. twilson 11:40 AM Catheter removed twilson 11:40 AM Wire removed twilson 11:40 AM Lesion found in Proximal RCA. Pre Stenosis: Pre KELTON Flow: twilson 11:40 AM Coronary Dominance: right twilson 11:41 AM Right Coronary, Right Posterior Descending Arteries with Right Posterolateral and Acute Marginal branches with 30 % stenosis. If graft is supplying this area, 0 % stenosis twilson 11:41 AM Procedure completed at 11:41 05/29/2019 twilson 11:41 AM Did you address KELTON flow and Dominance? YesCoronary Dominance: right twilson 11:42 AM Isovue 370 - 125ml,1 Bottle(s) used. twilson 11:42 AM Sign out completed: Radiation Dose 156.96 mGy, 18.6 Gy/cm2 Fluoro Time: 1.7 Isovue 370 - 200ml contrast 59 ml given by Deny Haji MD, [facility]. Complications: None. The patient was discharged out of the lab support tech in stable condition. Sedation minutes 24. Cardiac Rehab Consult needed: No. Confirmed administered medications: Yes twilson 11:43 AM Vitals capture stopped. 11:44 AM Arterial sheath pulled, Vasc Band closure device used and was Successful S/N. twilson 11:44 AM 13 ml air in Vasc Band. twilson 11:44 AM Estimated Blood Loss: minimal twilson 11:44 AM Post ECG bundle branch block twilson 11:44 AM Post Blood Pressure 159/69 twilson 11:44 AM 11:44 Post Pulses Bilateral radial 2+ twilson 11:44 AM Information taught Cardiac Cath and Vasc Band twilson 11:44 AM Education needs Procedure, Plan of Care, and Responsibilities of Patient in Care twilson 11:44 AM Learning barriers :None twilson 11:44 AM Education Methods Verbal twilson 11:44 AM Education evaluation Able to repeat information twilson 11:45 AM Site status No bleeding/ No Hematoma - Rt Wrist as reported by Angie Cordero RT (R) at 11:44 twilson 11:45 AM Family placed in consult room. twilson 11:46 AM Report given to Ilia DOE Pt taken to 2NE Room #19. 11:46 twilson 11:46 AM Patient out of room: 11:46 twilson Complications Complication None Hemodynamics Pressures Site Systolic/A Wave Diastolic/V Wave Mean AO 131 62 91 AO 136 64 94 AO 127 60 88 AO 150 76 108 LV 148 4 11 LV 153 6 12 AO 149 44 84 Post Procedure Information Blood Pressure: 159/69 mmHg Rhythm: bundle branch block Post procedural instructions were given Closure Device Time Device Success/Fail 05/29/2019 11:46:00 AM Mechanical Compression Successful Site Checks Time Location Status Staff Sheath In? Note 11:44 AM Rt Wrist No bleeding/ No Hematoma Angie Cordero RT (R) Pulses Time Site Pre-Procedure Post-Procedure Note 05/29/2019 11:08:00 AM Bilateral radial 11:44:00 AM Bilateral radial 2+ Updated by Shara Garcia RT (R) on 05/29/2019 11:49:00 AM electronically signed on 05/29/2019 11:49:58 AM with status of Final
--- NOTE | 2019-05-29 11:58 | Event Note ---
Date of Encounter: 05/29/19 Time of Encounter: 12:00 - Cardiology Event Note Per discussion with Dr. Haji, [facility] mild CAD. Cardiology signing off, re-consult PRN , f/u arranged. HAS-BLED Score - Score Hypertension: Uncontrolled,>160 mmhg systolic Elderly: Age>65 years Score: 2
[2019-05-29] MEDS: hydroCHLOROthiazide 25 MG TABLET PO SCH (14:39)
[2019-05-29] MEDS ORDERED: Insulin LISPRO 300 UNITS/3 ML VIAL SQ SCH (21:00)
[2019-05-29] MEDS: *HR* Heparin 5,000 UNIT/ML VIAL SQ SCH (21:18)
[2019-05-30] MEDS: *HR* Heparin 5,000 UNIT/ML VIAL SQ SCH (05:21)
[2019-05-30 07:41] VITALS: BP 170/62
[2019-05-30] MEDS: Insulin LISPRO 300 UNITS/3 ML VIAL SQ SCH ×2 (07:49→11:55)
[2019-05-30] MEDS: Lisinopril 20 MG TABLET PO SCH (08:41)
[2019-05-30] MEDS: Metoprolol XL (24 HR) Succ 50 MG TAB.ER.24H PO SCH (08:41)
[2019-05-30] MEDS: Aspirin Enteric Coated 81 MG Tablet PO SCH (08:41)
[2019-05-30] MEDS: hydroCHLOROthiazide 25 MG TABLET PO SCH (08:42)
[2019-05-30] MEDS ORDERED: amLODIPine 5 MG TABLET PO SCH (09:00)
[2019-05-30] MEDS ORDERED: Furosemide 40 MG/4 ML VIAL IVP ONE (09:43)
[2019-05-30] MEDS ORDERED: amLODIPine 5 MG TABLET PO ONE (10:01)
--- NOTE | 2019-05-30 14:26 | Discharge Summary ---
- NOTES TO OUTPATIENT PROVIDER Notes to Outpatient Provider: Follow-up with PCP as outpatient. BMP in 1 week. Date of Encounter: 05/30/19 Time of Encounter: 12:00 - Discharge Diagnosis (1) Elevated troponin Priority: Primary Status: Acute (2) Heart failure Priority: Secondary Status: Acute Qualifiers: Heart failure type: diastolic Heart failure chronicity: acute Qualified Code(s): I50.31 - Acute diastolic (congestive) heart failure (3) Accelerated hypertension Priority: Secondary Status: Acute (4) Newly diagnosed diabetes Priority: Secondary Status: Acute (5) Obesity (BMI 30.0-34.9) Priority: Secondary Status: Chronic (6) DVT prophylaxis Priority: Secondary Status: Acute Hospital course: Ms. Chan is a 78 year old female with Hx of HTN and obesity who was admitted due to dyspnea on exertion. Of note, she had been struggling to take care for her ill for the last year who just about a week ago. She was found to have elevated troponin and mild decompensated heart failure in the setting of BP 206/131. She was also noted to be a new diabetic with A1c 8.9. EKG showed new LBBB but the comparison EKG was done > 10 years ago. CTA negative for pulmonary embolism but did show evidence of mild fluid overload. Clinically improved after IV lasix and subsequently underwent left heart catherization on 05/29 which only showed mild CAD. Norvasc 10 mg was added to her blood pressure regime and she is also going to be started on metformin 850mg BID. Despite adequate diuresis, she continues to experience intermittent SOB which was most likely due to panic attack. She did not have any episode of desaturating during those spells and also did not qualify for home oxygen on 6 min walk test. She will be started on Zoloft and when necessary Ativan with close PCP follow-up. Discharge discussed with: patient, family, nurse, case management - Time Spent with Patient Total time spent providing and/or coordinating discharge services: 35 mins - Discharge Medications Prescriptions: New LORazepam [Ativan] 0.5 mg PO TID PRN 5 Days #15 tablet PRN Reason: Anxiety metFORMIN [Glucophage] 850 mg PO BIDWM #60 tablet Atorvastatin [Lipitor] 40 mg PO HS #30 tablet amLODIPine [Norvasc] 10 mg PO DAILY #60 tablet Sertraline [Zoloft] 25 mg PO DAILY #30 tablet Continued Metoprolol Succinate [Toprol Xl] 50 mg PO DAILY hydroCHLOROthiazide [Hydrochlorothiazide] 25 mg PO DAILY Lisinopril [Zestril] 40 mg PO DAILY Aspirin [Lo-Dose Aspirin EC] 81 mg PO DAILY Calcium Carbonate [Calcium] 500 mg PO DAILY Home Medications: Aspirin [Lo-Dose Aspirin EC] 81 mg PO DAILY 05/28/19 [History] Calcium Carbonate [Calcium] 500 mg PO DAILY 05/28/19 [History] Lisinopril [Zestril] 40 mg PO DAILY 05/28/19 [History] Metoprolol Succinate [Toprol Xl] 50 mg PO DAILY 05/28/19 [History] hydroCHLOROthiazide [Hydrochlorothiazide] 25 mg PO DAILY 05/28/19 [History] Atorvastatin [Lipitor] 40 mg PO HS #30 tablet 05/30/19 [Rx] LORazepam [Ativan] 0.5 mg PO TID PRN 5 Days #15 tablet 05/30/19 [Rx] Sertraline [Zoloft] 25 mg PO DAILY #30 tablet 05/30/19 [Rx] amLODIPine [Norvasc] 10 mg PO DAILY #60 tablet 05/30/19 [Rx] metFORMIN [Glucophage] 850 mg PO BIDWM #60 tablet 05/30/19 [Rx] Allergies/Adverse Reactions: Allergy/AdvReac Type Severity Reaction Status Date / Time Penicillins Allergy Hives Verified 05/28/19 12:31 Date of admission: 05/28/19 11:51 Primary care physician: Jerry De Leon Consults: 05/28/19 09:03 Consult to Cardiology [CONS] Stat Comment: Consulting Provider: [facility] [place] Reason for Consult: EKG changes, elevated trop, chest tightness Call Completed: Yes - Constitutional Vitals: Temp Pulse Resp BP Pulse Ox 97.7 F 65 17 170/62 96 05/30/19 07:34 05/30/19 07:34 05/30/19 07:34 05/30/19 07:34 05/30/19 11:59 Exam: General: Alert and oriented, appears anxious Cardiovascular:Normal S1 & S2, No JVD. Pulse regular. Lungs: Clear to auscultation Abdomen:Soft, non-tender, no rigidity. Extremities:No deformity or swelling Neurological:Normal cognition and motor skills. Non-focal - Patient Status Disposition: Home, Self-Care Condition: Fair Functional capacity at discharge: independent ambulation Overall status at discharge: patient is progressing back to baseline - Discharge Instructions Instructions: Hypertensive Crisis (DC), Diabetes Mellitus Type 2 in Adults (DC) Follow Up With: Jerry De Leon DO [Primary Care Provider] - - Diet and Activity Activity: resume usual activities as tolerated Diet: diabetic diet - VTE Documentation of Mechanical Device: Intermittent pneumatic compression device
== END 2019-05-30 15:20 | disposition home or self-care (01) | DRG 280 ==
LOC: 2NENU 07:50 → EMEROOARM 07:50 → SUATTDRO 11:51 → 2NENU 12:02
PROVIDERS: ADMIT Internal Medicine; ATTEND Internal Medicine

== ENCOUNTER 2019-06-02 21:48 | Observation (INO) ==
[2019-06-02] MEDS ORDERED: Ondansetron 4 MG/2 ML VIAL IVP ONE (22:10)
--- NOTE | 2019-06-02 22:16 | Emergency Department Note ---
Disposition Clinical Impression: HOLLIS (acute kidney injury) Nausea and vomiting Qualifiers: Vomiting type: unspecified Vomiting Intractability: non-intractable Qualified Code(s): R11.2 - Nausea with vomiting, unspecified Disposition: Admitted As Inpatient Condition: Good Referrals: Jerry De Leon DO [Non-Partnered Physician] - Forms: ED Satisfaction Letter Time of Disposition: 00:01 General Adult HPI - General Chief complaint: ED Nausea/Vomiting/Diarrhea Stated complaint: N/V, GOODE Time Seen by Provider: 06/02/19 21:58 Source: patient, family Mode of arrival: ambulatory Limitations: no limitations Nursing Notes Reviewed: Yes Vital Signs Reviewed: Yes - History of Present Illness HPI Narrative: Patient is a 78-year-old female that presents the emergency department with reports of nausea, vomiting and diarrhea. Patient states that she was recently hospitalized for shortness of breath had a cardiac catheterization which was negative other than some mild coronary artery disease. Patient states that over the past couple of days she has been vomiting. Patient states that she was recently diagnosed as a diabetic and started on metformin. States that she has not been able to keep any of her medications down and assumed she takes them she will vomit. Patient states that she does not have any blood in her vomit or in her stool. Patient also reports multiple loose stools but says that is not sure diarrhea. Patient denies any increased urinary frequency, urgency or pain with urination. Patient denies any fevers. Family states that her blood glucose was 190 earlier today. Patient also reports that she has been having a headache. Pain Scale: 8 - Related Data Home Medications Medication Instructions Recorded Confirmed Aspirin [Lo-Dose Aspirin EC] 81 mg PO DAILY 05/28/19 05/28/19 Calcium Carbonate [Calcium] 500 mg PO DAILY 05/28/19 05/28/19 Lisinopril [Zestril] 40 mg PO DAILY 05/28/19 05/28/19 Metoprolol Succinate [Toprol Xl] 50 mg PO DAILY 05/28/19 05/28/19 hydroCHLOROthiazide 25 mg PO DAILY 05/28/19 05/28/19 [Hydrochlorothiazide] Previous Rx's Medication Instructions Recorded Atorvastatin [Lipitor] 40 mg PO HS #30 tablet 05/30/19 Furosemide [Lasix] 40 mg PO DAILY #30 tablet 05/30/19 LORazepam [Ativan] 0.5 mg PO TID PRN 5 Days #15 tablet 05/30/19 Sertraline [Zoloft] 25 mg PO DAILY #30 tablet 05/30/19 amLODIPine [Norvasc] 10 mg PO DAILY #60 tablet 05/30/19 metFORMIN [Glucophage] 850 mg PO BIDWM #60 tablet 05/30/19 Allergies Allergy/AdvReac Type Severity Reaction Status Date / Time Penicillins Allergy Hives Verified 06/02/19 21:50 All systems ED: reviewed and negative except as stated. Constitutional: Denies: fever Cardiovascular: Denies: chest pain Respiratory: Denies: dyspnea Gastrointestinal: Reports: nausea, vomiting, other (Loose stools). Denies: abdominal pain, diarrhea Neurological: Denies: weakness, numbness, paresthesias Past Medical History - Past Medical History Medical history: Reports: arthritis, cancer, hypertension Surgical history: Reports: cholecystectomy Psychiatric history: Reports: anxiety, depression - Social History Smoking Status: Never smoker Smokeless Tobacco Status: No Alcohol use: Reports: none Drug use: Reports: none Physical Exam - General Limitations: no limitations General appearance: alert, in no apparent distress - Head Head exam: atraumatic, normocephalic - Eye Eye exam: Present: normal appearance, EOMI - Neck Neck exam: Present: normal inspection, full ROM, trachea midline - Respiratory Respiratory exam: Present: normal lung sounds bilaterally. Absent: respiratory distress, wheezes - Cardiovascular Cardiovascular exam: Present: regular rate, normal rhythm, normal heart sounds, +S1, +S2 - Abdominal Exam Abdominal exam: Present: soft, Non-Tender, normal bowel sounds - Neurological Exam Neurological exam: Present: alert, oriented X3 - Psychiatric Psychiatric exam: Present: normal affect, normal mood - Skin Skin exam: Present: warm, dry, intact Course Vital Signs Temperature 98.5 F 06/02/19 21:50 Pulse Rate 74 06/02/19 21:50 Respiratory Rate 19 06/02/19 21:50 Blood Pressure 142/51 06/02/19 21:50 O2 Sat by Pulse Oximetry 94 06/02/19 21:50 Temperature 98.5 F 06/02/19 21:50 Pulse Rate 69 06/02/19 23:53 Respiratory Rate 20 06/02/19 23:53 Blood Pressure 135/59 06/02/19 23:53 O2 Sat by Pulse Oximetry 91 06/02/19 23:53 Oxygen Delivery Oxygen Delivery Room Air Medical Decision Making - MDM Narrative Medical decision making narrative: Due the patient is not emergency Department with reports of nausea vomiting and loose stools we will obtain basic laboratory testing. Laboratory testing shows that the patient does have an acute kidney injury. Patient is resting comfortably after receiving Zofran. Patient's head CT is negative. Patient does have a mild leukocytosis of 15.4 however this is likely secondary to the patient having been vomiting. Due to the patient having acute kidney injury she was started on IV fluids. The patient will be admitted to the hospital for further evaluation and management. Called spoke the admitting hospitalist and they have accepted the patient to their service. - Medical Records Medical records reviewed: Yes I reviewed the patient's medical records. - Lab Data Lab results reviewed: Yes I reviewed the patient's lab results. Result diagrams: 06/02/19 22:34 06/02/19 22:34 Lab Results 06/02/19 06/02/19 06/02/19 Range/Units 22:02 22:34 22:34 WBC 15.4 H D (4.3-11.1) K/mcL RBC 4.53 (3.82-4.97) M/mcL Hgb 13.6 D (11.5-15.4) g/dL Hct 40.0 (35.3-44.9) % MCV 88.3 (83.0-100.0) fL MCH 30.0 (28.0-33.3) pg MCHC 34.0 (31.6-35.5) g/dL RDW 13.5 (11.5-14.5) % Plt Count 371 (140-400) K/mcL MPV 10.8 (9.4-12.4) fL Immature Gran % 0.5 (0-4) % Seg Neutrophils % 74.6 % Lymphocytes % 20.6 % Monocytes % 4.2 % Eosinophils % 0.0 % Basophils % 0.1 % Neutrophils # 11.5 H (1.6-8.9) K/mcL Lymphocytes # 3.2 (0.6-4.6) K/mcL Monocytes # 0.7 (0.0-1.3) K/mcL Eosinophils # 0.0 (0.0-0.6) K/mcL Basophils # 0.0 (0.0-0.2) K/mcL VBG pH (7.32-7.42) pH Units VBG pCO2 (41-51) mmHg VBG pO2 (25-50) mmHg VBG HCO3 (21-27) mEq/L Sodium 135 L (136-145) mEq/L Potassium 3.4 L (3.5-5.1) mEq/L Chloride 92 L (98-107) mEq/L Carbon Dioxide 28 (23-29) mEq/L BUN 48 H (8-23) mg/dL Creatinine 1.29 H (0.60-1.20) mg/dL Est GFR ( Amer) 49 L (> 60) Est GFR (Non-Af Amer) 40 L (> 60) BUN/Creatinine Ratio 37 H (6-26) Glucose 196 H (70-105) mg/dL Calculated Osmolality 298 (280-300) Calcium 10.0 (8.6-10.3) mg/dL Beta-Hydroxybutyric Acd (0.02-0.27) mmol/L Urine Color Yellow (Yellow) Urine Clarity Clear (Clear) Urine pH 5.0 (5.0-8.0) pH Units Ur Specific [place] 1.020 (1.010-1.025) Urine Protein Negative (Neg-Trace) mg/dL Urine Glucose (UA) Normal (Normal) mg/dL Urine Ketones Negative (Negative) mg/dL Urine Blood Negative (Negative) Urine Nitrite Negative (Negative) Urine Bilirubin Negative (Negative) Urine Urobilinogen Normal (Normal) mg/dL Ur Leukocyte Esterase Negative (Negative) Ur Culture Indicated? NO (NO) 06/02/19 06/02/19 Range/Units 22:34 22:50 WBC (4.3-11.1) K/mcL RBC (3.82-4.97) M/mcL Hgb (11.5-15.4) g/dL Hct (35.3-44.9) % MCV (83.0-100.0) fL MCH (28.0-33.3) pg MCHC (31.6-35.5) g/dL RDW (11.5-14.5) % Plt Count (140-400) K/mcL MPV (9.4-12.4) fL Immature Gran % (0-4) % Seg Neutrophils % % Lymphocytes % % Monocytes % % Eosinophils % % Basophils % % Neutrophils # (1.6-8.9) K/mcL Lymphocytes # (0.6-4.6) K/mcL Monocytes # (0.0-1.3) K/mcL Eosinophils # (0.0-0.6) K/mcL Basophils # (0.0-0.2) K/mcL VBG pH 7.46 H (7.32-7.42) pH Units VBG pCO2 42 (41-51) mmHg VBG pO2 99 H (25-50) mmHg VBG HCO3 30 H (21-27) mEq/L Sodium (136-145) mEq/L Potassium (3.5-5.1) mEq/L Chloride (98-107) mEq/L Carbon Dioxide (23-29) mEq/L BUN (8-23) mg/dL Creatinine (0.60-1.20) mg/dL Est GFR ( Amer) (> 60) Est GFR (Non-Af Amer) (> 60) BUN/Creatinine Ratio (6-26) Glucose (70-105) mg/dL Calculated Osmolality (280-300) Calcium (8.6-10.3) mg/dL Beta-Hydroxybutyric Acd 0.78 H (0.02-0.27) mmol/L Urine Color (Yellow) Urine Clarity (Clear) Urine pH (5.0-8.0) pH Units Ur Specific [place] (1.010-1.025) Urine Protein (Neg-Trace) mg/dL Urine Glucose (UA) (Normal) mg/dL Urine Ketones (Negative) mg/dL Urine Blood (Negative) Urine Nitrite (Negative) Urine Bilirubin (Negative) Urine Urobilinogen (Normal) mg/dL Ur Leukocyte Esterase (Negative) Ur Culture Indicated? (NO) - Radiology Data Radiology results reviewed: Yes I reviewed the patient's radiology results. Head CT 06/02/19 22:25 IMPRESSION: No acute intracranial abnormality. Small amount of fluid within the right sphenoid sinus. Correlation for acute sinusitis is recommended. D/ / Ching Carmona Cha, MD / Ching Carmona Cha, MD Interpreting Provider: Ching Carmona Cha, MD
[2019-06-02 22:24] LABS: Bilirubin,Urine Negative (Negative); Blood,Urine Negative (Negative); Clarity,Urine Clear (Clear); Color,Urine Yellow (Yellow); Glucose,Urine (UA) Normal (Normal); Ketones,Urine Negative (Negative); Leukocyte Esterase,Urine Negative (Negative); Nitrite,Urine Negative (Negative); Protein,Urine Negative (Neg-Trace); Urobilinogen,Urine Normal (Normal)
[2019-06-02] MEDS ORDERED: 0.9 % Sodium Chloride 1,000 ML IVC ONE (22:24)
[2019-06-02] MEDS ORDERED: 0.9 % Sodium Chloride 1,000 ML IVC SCH (22:30)
[2019-06-02 22:49] LABS: Basophils % 0.1 %; Immature Granulocytes % 0.5 % (0-4); Lymphocytes # 3.2 K/mcL (0.6-4.6); Lymphocytes % 20.6 %; Mean Corpuscular Volume 88.3 fL (83.0-100.0); Mean Platelet Volume 10.8 fL (9.4-12.4); Monocytes % 4.2 %; Neutrophils # 11.5 K/mcL (1.6-8.9); Platelet Count 371 K/mcL (140-400); Red Blood Count 4.53 M/mcL (3.82-4.97); Red Cell Distribution Width 13.5 % (11.5-14.5); Segmented Neutrophils % 74.6 %
[2019-06-02 22:51] LABS: Hemoglobin 13.6 g/dL (11.5-15.4); Monocytes # 0.7 K/mcL (0.0-1.3); White Blood Count 15.4 K/mcL (4.3-11.1)
--- NOTE | 2019-06-02 22:52 | Emergency Department Note ---
Disposition Clinical Impression: HOLLIS (acute kidney injury) Nausea and vomiting Qualifiers: Vomiting type: unspecified Vomiting Intractability: non-intractable Qualified Code(s): R11.2 - Nausea with vomiting, unspecified Disposition: Admitted As Inpatient Condition: Good Time of Disposition: 00:01 General Adult HPI - General Chief complaint: ED Nausea/Vomiting/Diarrhea Stated complaint: N/V, GOODE Time Seen by Provider: 06/02/19 21:58 Source: patient, family Mode of arrival: ambulatory Limitations: no limitations Nursing Notes Reviewed: Yes Vital Signs Reviewed: Yes - History of Present Illness Pain Scale: 8 - Related Data Home Medications Medication Instructions Recorded Confirmed Aspirin [Lo-Dose Aspirin EC] 81 mg PO DAILY 05/28/19 06/02/19 Calcium Carbonate [Calcium] 500 mg PO DAILY 05/28/19 06/02/19 Lisinopril [Zestril] 40 mg PO DAILY 05/28/19 06/02/19 Metoprolol Succinate [Toprol Xl] 50 mg PO DAILY 05/28/19 06/02/19 hydroCHLOROthiazide 25 mg PO DAILY 05/28/19 06/02/19 [Hydrochlorothiazide] Previous Rx's Medication Instructions Recorded Atorvastatin [Lipitor] 40 mg PO HS #30 tablet 05/30/19 Furosemide [Lasix] 40 mg PO DAILY #30 tablet 05/30/19 LORazepam [Ativan] 0.5 mg PO TID PRN 5 Days #15 tablet 05/30/19 Sertraline [Zoloft] 25 mg PO DAILY #30 tablet 05/30/19 amLODIPine [Norvasc] 10 mg PO DAILY #60 tablet 05/30/19 metFORMIN [Glucophage] 850 mg PO BIDWM #60 tablet 05/30/19 Allergies Allergy/AdvReac Type Severity Reaction Status Date / Time Penicillins Allergy Hives Verified 06/02/19 21:50 Constitutional: Denies: fever Cardiovascular: Denies: chest pain Respiratory: Denies: dyspnea Gastrointestinal: Reports: nausea, vomiting, other (Loose stools). Denies: abdominal pain, diarrhea Neurological: Denies: weakness, numbness, paresthesias Past Medical History - Past Medical History Medical history: Reports: arthritis, cancer, hypertension Surgical history: Reports: cholecystectomy Psychiatric history: Reports: anxiety, depression - Social History Smoking Status: Never smoker Smokeless Tobacco Status: No Alcohol use: Reports: none Drug use: Reports: none Physical Exam - General Limitations: no limitations General appearance: alert, in no apparent distress Course Vital Signs Temperature 98.5 F 06/02/19 21:50 Pulse Rate 74 06/02/19 21:50 Respiratory Rate 19 06/02/19 21:50 Blood Pressure 142/51 06/02/19 21:50 O2 Sat by Pulse Oximetry 94 06/02/19 21:50 Temperature 98.5 F 06/02/19 21:50 Pulse Rate 69 06/02/19 23:53 Respiratory Rate 20 06/02/19 23:53 Blood Pressure 135/59 06/02/19 23:53 O2 Sat by Pulse Oximetry 91 06/02/19 23:53 Oxygen Delivery Oxygen Delivery Room Air Medical Decision Making - Medical Records Medical records reviewed: Yes I reviewed the patient's medical records. - Lab Data Lab results reviewed: Yes I reviewed the patient's lab results. Result diagrams: 06/02/19 22:34 06/02/19 22:34 Lab Results 06/02/19 06/02/19 06/02/19 Range/Units 22:02 22:34 22:34 WBC 15.4 H D (4.3-11.1) K/mcL RBC 4.53 (3.82-4.97) M/mcL Hgb 13.6 D (11.5-15.4) g/dL Hct 40.0 (35.3-44.9) % MCV 88.3 (83.0-100.0) fL MCH 30.0 (28.0-33.3) pg MCHC 34.0 (31.6-35.5) g/dL RDW 13.5 (11.5-14.5) % Plt Count 371 (140-400) K/mcL MPV 10.8 (9.4-12.4) fL Immature Gran % 0.5 (0-4) % Seg Neutrophils % 74.6 % Lymphocytes % 20.6 % Monocytes % 4.2 % Eosinophils % 0.0 % Basophils % 0.1 % Neutrophils # 11.5 H (1.6-8.9) K/mcL Lymphocytes # 3.2 (0.6-4.6) K/mcL Monocytes # 0.7 (0.0-1.3) K/mcL Eosinophils # 0.0 (0.0-0.6) K/mcL Basophils # 0.0 (0.0-0.2) K/mcL VBG pH (7.32-7.42) pH Units VBG pCO2 (41-51) mmHg VBG pO2 (25-50) mmHg VBG HCO3 (21-27) mEq/L Sodium 135 L (136-145) mEq/L Potassium 3.4 L (3.5-5.1) mEq/L Chloride 92 L (98-107) mEq/L Carbon Dioxide 28 (23-29) mEq/L BUN 48 H (8-23) mg/dL Creatinine 1.29 H (0.60-1.20) mg/dL Est GFR ( Amer) 49 L (> 60) Est GFR (Non-Af Amer) 40 L (> 60) BUN/Creatinine Ratio 37 H (6-26) Glucose 196 H (70-105) mg/dL Calculated Osmolality 298 (280-300) Lactic Acid (0.5-2.2) mmol/L Calcium 10.0 (8.6-10.3) mg/dL Beta-Hydroxybutyric Acd (0.02-0.27) mmol/L Urine Color Yellow (Yellow) Urine Clarity Clear (Clear) Urine pH 5.0 (5.0-8.0) pH Units Ur Specific [place] 1.020 (1.010-1.025) Urine Protein Negative (Neg-Trace) mg/dL Urine Glucose (UA) Normal (Normal) mg/dL Urine Ketones Negative (Negative) mg/dL Urine Blood Negative (Negative) Urine Nitrite Negative (Negative) Urine Bilirubin Negative (Negative) Urine Urobilinogen Normal (Normal) mg/dL Ur Leukocyte Esterase Negative (Negative) Ur Culture Indicated? NO (NO) 06/02/19 06/02/19 06/03/19 Range/Units 22:34 22:50 00:06 WBC (4.3-11.1) K/mcL RBC (3.82-4.97) M/mcL Hgb (11.5-15.4) g/dL Hct (35.3-44.9) % MCV (83.0-100.0) fL MCH (28.0-33.3) pg MCHC (31.6-35.5) g/dL RDW (11.5-14.5) % Plt Count (140-400) K/mcL MPV (9.4-12.4) fL Immature Gran % (0-4) % Seg Neutrophils % % Lymphocytes % % Monocytes % % Eosinophils % % Basophils % % Neutrophils # (1.6-8.9) K/mcL Lymphocytes # (0.6-4.6) K/mcL Monocytes # (0.0-1.3) K/mcL Eosinophils # (0.0-0.6) K/mcL Basophils # (0.0-0.2) K/mcL VBG pH 7.46 H (7.32-7.42) pH Units VBG pCO2 42 (41-51) mmHg VBG pO2 99 H (25-50) mmHg VBG HCO3 30 H (21-27) mEq/L Sodium (136-145) mEq/L Potassium (3.5-5.1) mEq/L Chloride (98-107) mEq/L Carbon Dioxide (23-29) mEq/L BUN (8-23) mg/dL Creatinine (0.60-1.20) mg/dL Est GFR ( Amer) (> 60) Est GFR (Non-Af Amer) (> 60) BUN/Creatinine Ratio (6-26) Glucose (70-105) mg/dL Calculated Osmolality (280-300) Lactic Acid 1.1 (0.5-2.2) mmol/L Calcium (8.6-10.3) mg/dL Beta-Hydroxybutyric Acd 0.78 H (0.02-0.27) mmol/L Urine Color (Yellow) Urine Clarity (Clear) Urine pH (5.0-8.0) pH Units Ur Specific [place] (1.010-1.025) Urine Protein (Neg-Trace) mg/dL Urine Glucose (UA) (Normal) mg/dL Urine Ketones (Negative) mg/dL Urine Blood (Negative) Urine Nitrite (Negative) Urine Bilirubin (Negative) Urine Urobilinogen (Normal) mg/dL Ur Leukocyte Esterase (Negative) Ur Culture Indicated? (NO) - Radiology Data Radiology results reviewed: Yes I reviewed the patient's radiology results. Head CT 06/02/19 22:25 IMPRESSION: No acute intracranial abnormality. Small amount of fluid within the right sphenoid sinus. Correlation for acute sinusitis is recommended. D/ / Ching Carmona Cha, MD / Ching Carmona Cha, MD Interpreting Provider: Ching Carmona Cha, MD Attestation Statement - Attestation Attestation: I, Joaquín Ritter MD, personally evaluated this patient and discussed their management with the resident physician. I reviewed the resident's note and agree with the documented findings, medical decision making, and plan of care. 78-year-old female presents to the emergency department with a complaint of nausea and vomiting for 2 days prior to arrival. Family reports that she has been unable to keep anything down, even water or Pedialyte. She also has had some diarrhea. No melena, hematemesis, or hematochezia. No fever. Some intermittent crampy mid lower abdominal pain. She denies any urinary symptoms. As just admitted to the hospital about 5 days ago for some difficulty breathing. She had an elevated d-dimer and a negative CTA. She had a cardiac catheter during that visit for an elevated troponin. She was just diagnosed as diabetic during this recent admission and started on metformin. She was discharged home on Saturday and Saturday morning started feeling nauseated after she took her medications and then started vomiting Saturday afternoon and has been vomiting ever since. Family reports she has been unable to keep down any of her medications. On examination patient is a well-developed well-nourished elderly female in no acute distress. She is alert and oriented 3. There is no cyanosis or diap horesis. Breath sounds are clear and equal bilaterally. Heart regular rate and rhythm with a 2/6 systolic murmur. Abdomen is soft and nontender with decreased bowel sounds. No tympany or distention. No guarding or rebound tenderness. No pedal edema. Labs reviewed. Patient does have a mild acute kidney injury. Head CT negative. The hospitalist, Dr. Ortiz, was consulted and accepted admission of the patient.
[2019-06-02 22:53] LABS: VBG HCO3 30 mEq/L (21-27); VBG PCO2 42 mmHg (41-51); VBG PH 7.46 pH Units (7.32-7.42); VBG PO2 99 mmHg (25-50)
[2019-06-02 23:05] LABS: Potassium 3.4 mEq/L (3.5-5.1)
[2019-06-03] MEDS ORDERED: Ondansetron 4 MG/2 ML VIAL IVP PRN (01:14)
[2019-06-03] MEDS ORDERED: *HR* Promethazine 25 MG/ML VIAL IVP PRN (01:14)
[2019-06-03] MEDS ORDERED: *HR* Dextrose 50 % in Water (Syg) 50 ML SYRINGE IVP PRN (03:59)
[2019-06-03] MEDS ORDERED: D5% in Water 1,000 ML IVC PRN (03:59)
[2019-06-03] MEDS ORDERED: Dextrose Gel 15 GM/37.5 ML TUBE PO PRN ×2 (03:59)
[2019-06-03] MEDS ORDERED: *HR* LORazepam 0.5 MG TABLET PO PRN (04:00)
[2019-06-03] MEDS ORDERED: Naloxone 0.4 MG/ML INJ IVP PRN (04:05)
[2019-06-03] MEDS ORDERED: Acetaminophen 325 MG TABLET PO PRN (04:05)
--- NOTE | 2019-06-03 04:26 | Internal Med History&Physical ---
Date of Encounter: 06/03/19 Time of Encounter: 02:45 Internal Medicine - H&P: HPI Chief complaint: N/V/D Admitted From: Emergency Dept Plans for Post Hospital Care: Home History of present illness: Ms. Chan is a 78 year old female w/PMH of CHF, DM controlled by oral anti- hyperglycemics, arthritis, hx of breast cancer, HTN, HLD, anxiety, and depression presents from the ED w/CC of feeling unwell for the past several days w/symptoms of nausea, vomiting, and diarrhea. No alleviating or aggravating factors. Patient reports that she was admitted on 05/28/19 for SOB and had a LHC that was negative. Pt. states that she was told she had possible CHF and was placed on diuretics. Pt. also reports she was told she was diabetic and placed on Metformin. Patient denies any sick contacts. Patient reports that she has been unable to eat or drink for the past several days and has felt weak but denies headache, changes in vision, unusual bleeding, chest pain, shortness of breath, abdominal pain, constipation, cough, chest congestion, dizziness, lightheadedness, numbness, tingling, pre-syncope, or syncope. Past Med Surg Social Fam HX - Past Medical History Source: patient, old records reviewed Medical history: arthritis, cancer (Breast), diabetes, hyperlipidemia, hypertension Additional medical history: breast CA Psychiatric history: anxiety, depression - Past Surgical History Surgical History: cholecystectomy Additional surgical history: carpel tunnel, heart surgery, lumpectomy to left breast, lump removed from neck - Social History Smoking Status: Never smoker Smokeless Tobacco Status: No Alcohol use: none Drug use: none Current living situation: Home Activity Level: Independent ambulation Recent Out of Country Travel Within the Last 8 Weeks: No Exposure or Possible Exposure to Illness During Travel: No - Family History Mother Race: Family Member Ethnicity: Non- Living Status: Age at : 90 Cause of : Natural causes Hx Family Cancer: Yes Hx Family Endocrine Disorder: Yes Father Race: Family Member Ethnicity: Non- Living Status: Age at : 53 Cause of : HI Hx Family Cardiac Disorders: Yes (HI, CAD) Brother Race: Family Member Ethnicity: Non- Living Status: Still Living Hx Family Medical Disorders: No Sister Race: Family Member Ethnicity: Non- Living Status: Still Living Hx Family Medical Disorders: No Internal Medicine - H&P: Meds Aspirin [Lo-Dose Aspirin EC] 81 mg PO DAILY 05/28/19 [History] Calcium Carbonate [Calcium] 500 mg PO DAILY 05/28/19 [History] Lisinopril [Zestril] 40 mg PO DAILY 05/28/19 [History] Metoprolol Succinate [Toprol Xl] 50 mg PO DAILY 05/28/19 [History] hydroCHLOROthiazide [Hydrochlorothiazide] 25 mg PO DAILY 05/28/19 [History] Atorvastatin [Lipitor] 40 mg PO HS #30 tablet 05/30/19 [Rx] Furosemide [Lasix] 40 mg PO DAILY #30 tablet 05/30/19 [Rx] LORazepam [Ativan] 0.5 mg PO TID PRN 5 Days #15 tablet 05/30/19 [Rx] Sertraline [Zoloft] 25 mg PO DAILY #30 tablet 05/30/19 [Rx] amLODIPine [Norvasc] 10 mg PO DAILY #60 tablet 05/30/19 [Rx] metFORMIN [Glucophage] 850 mg PO BIDWM #60 tablet 05/30/19 [Rx] Allergy/AdvReac Type Severity Reaction Status Date / Time Penicillins Allergy Hives Verified 06/02/19 21:50 All Systems PM: A 10-system review of systems was performed and is negative for pertinent findings except as documented above in the HPI. - Constitutional Constitutional: as per HPI, anorexia (For the past several days), fatigue, weakness, no chills, no fever(s), no night sweats - EENT Eyes: no change in vision, no discharge, no pain, no photophobia Ears: no ear discharge, no ear pain, no tinnitus Nose, mouth and throat: no dysphagia, no nasal discharge, no neck pain, no sore throat - Breasts Breasts: as per HPI - Cardiovascular Cardiovascular ROS IM: as per HPI, no chest pain, no diaphoresis, no dyspnea, no lightheadedness, no palpitations, no syncope - Respiratory Respiratory: no cough, no dyspnea, no wheezing, no excessive phlegm production - Gastrointestinal Gastrointestinal: as per HPI, diarrhea, nausea, vomiting, no abdominal pain, no hematemesis, no hematochezia, no melena - Genitourinary Genitourinary: no change in urinary stream, no dysuria, no flank pain, no hematuria Menstruation: as per HPI - Musculoskeletal Musculoskeletal ROS IM: no numbness, no tingling - Integumentary Integumentary IM: no rash, no unusual bruising - Neurological Neurological ROS: as per HPI, weakness, no confusion, no convulsions, no focal weakness, no numbness, no tingling, no tremor(s) - Psychiatric Psychiatric: as per HPI, anxiety, depression - Endocrine Endocrine IM: as per HPI - Hematologic/Lymphatic Hematologic/Lymphatic: no easy bruising - Allergic/Immunologic Allergic/Immunologic: as per HPI - Constitutional Vitals: Temp Pulse Resp BP Pulse Ox 98.5 F 78 18 148/67 93 06/03/19 04:06 06/03/19 04:06 06/03/19 04:06 06/03/19 04:06 06/03/19 04:06 General appearance: Present: cooperative, mild distress (Nausea), A&O X 3, ple asant, obese, answers questions appropriately Exam: Patient examined at bedside. Patient reports nausea and weakness, but denies any other sx or complaints on examination. VS: 98.2F temp, HR 69, RR 18, BP 144/71, SPO2 91% on room air. - Head Head exam: Present: atraumatic, normocephalic - Eye Eye exam: Present: PERRL, conjuntiva pink, sclera anicteric Pupils: Present: PERRL - ENT ENT exam: Present: normal exam - Neck Neck exam general surgery: Present: normal inspection, supple, trachea midline. Absent: lymphadenopathy - Respiratory Respiratory exam: Present: CTAB. Absent: accessory muscle use, rales, rhonchi, wheezes - Cardiovascular Cardiovascular exam: Present: RRR, +S1, +S2. Absent: diastolic murmur, gallop, rubs, systolic murmur - GI/Abdominal GI/Abdominal exam: Present: normal bowel sounds, soft, no peritoneal signs. Absent: distended, tenderness - Rectal Rectal exam: Present: deferred - Additional comments: exam deferred. - Extremities Exam Extremities exam: Present: warm, radial pulses palpable and symmetrical. Absent: calf tenderness, cyanotic, pedal edema - Back Exam Back exam: Present: normal inspection - Neurological Exam Neurological exam: Present: alert, CN II-XII intact, oriented X3, no focal deficits. Absent: pronater drift, facial droop, speech deficit - Psychiatric Psychiatric exam: Present: normal affect, normal mood - Skin Skin exam: Present: dry, intact Internal Med - H&P Results - Labs CBC & Chem 7: 06/03/19 04:53 06/03/19 04:53 Labs: Short CBC 06/02/19 Range/Units 22:34 WBC 15.4 H D (4.3-11.1) K/mcL Hgb 13.6 D (11.5-15.4) g/dL Hct 40.0 (35.3-44.9) % Plt Count 371 (140-400) K/mcL Neutrophils # 11.5 H (1.6-8.9) K/mcL BMP 06/02/19 22:34 Sodium 135 L Potassium 3.4 L Chloride 92 L Carbon Dioxide 28 BUN 48 H Creatinine 1.29 H Glucose 196 H Calcium 10.0 Urine 06/02/19 Range/Units 22:02 Urine Color Yellow (Yellow) Urine Clarity Clear (Clear) Urine pH 5.0 (5.0-8.0) pH Units Ur Specific [place] 1.020 (1.010-1.025) Urine Protein Negative (Neg-Trace) mg/dL Urine Glucose (UA) Normal (Normal) mg/dL - ABG Interpretation ABG results: 06/02/19 22:50 VBG pH 7.46 H VBG pCO2 42 VBG pO2 99 H VBG HCO3 30 H - Impressions ITS Impressions Head CT 06/02/19 22:25 IMPRESSION: No acute intracranial abnormality. Small amount of fluid within the right sphenoid sinus. Correlation for acute sinusitis is recommended. D/ / Ching Carmona Cha, MD / Ching Carmona Cha, MD Interpreting Provider: Ching Carmona Cha, MD Chest X-Ray 06/03/19 01:13 IMPRESSION: No acute disease. D/ / Nikko Cardoso MD / Nikko Cardoso MD Interpreting Provider: Nikko Cardoso MD - Diagnostic Studies Chest x-ray Additional comments: Impressions Chest X-Ray 06/03/19 01:13 IMPRESSION: No acute disease. D/ / Nikko Cardoso MD / Nikko Cardoso MD Interpreting Provider: Nikko Cardoso MD CT scan - head Additional comments: Impressions Head CT 06/02/19 22:25 IMPRESSION: No acute intracranial abnormality. Small amount of fluid within the right sphenoid sinus. Correlation for acute sinusitis is recommended. D/ / Ching Carmona Cha, MD / Ching Carmona Cha, MD Interpreting Provider: Ching Carmona Cha, MD - Assessment and Plan (1) Nausea and vomiting Current Visit: Yes Status: Acute Assessment and plan: Acute nausea and vomiting for the past several days. Patient reports poor oral intake d/t N/V/D. Electrolyte imbalance most likely d/t dehydration from N/V/D. IVP Phenergan and Zofran ordered. Clear liquid diet ordered to start with advance as tolerated. Strict I&O. Monitor pt. and f/u labs for improving/worseni ng electrolytes. WBC 15.4 on admission. No identifiable infection source. Respiratory infection panel, U/A, CXR all negative for infection process. Blood cultures ordered. Legionella and strep pneumoniae antigens ordered. Patient is moderate risk for further morbidity and complications d/t current electrolyte imbalance requiring replenishment and monitoring, ongoing nausea and vomiting, current leukocytosis of unknown etiology, current anorexia, weakness and risk for falls; and risk factors of obesity, HTN, HLD, CHF, DM, and CKD. Observation. Qualifiers: Vomiting type: unspecified Vomiting Intractability: non-intractable Qualified Code(s): R11.2 - Nausea with vomiting, unspecified (2) Leukocytosis Current Visit: Yes Status: Acute Assessment and plan: Acute leukocytosis w/WBC of 15.4 on admission. U/A negative for UTI. CXR shows no acute disease. Respiratory infection panel ordered which was negative. Blood cultures ordered. Legionella and strep pneumoniae antigens ordered. No identifiable infection source at this time. Will hold abx until other tests are resulted unless leukocytosis or sx worsen. Monitor pt. and f/u labs. Qualifiers: Leukocytosis type: other Qualified Code(s): D72.828 - Other elevated white blood cell count (3) Diarrhea Current Visit: Yes Status: Acute Assessment and plan: Acute diarrhea for the past several days. Pt. denies recent abx. No current diarrhea on admission. Monitor strict I&O. Qualifiers: Diarrhea type: unspecified type Qualified Code(s): R19.7 - Diarrhea, unspecified (4) Loss of appetite Current Visit: Yes Status: Acute Assessment and plan: Acute loss of appetite and poor oral intake for the past several days. Nutrition consult for PO supplementation. Clear liquid diet w/advance as tolerated. Monitor strict I&O and daily weight. (5) Weakness Current Visit: Yes Status: Acute Assessment and plan: Acute weakness and fatigue for the past several days. Falls/safety precautions. Up with assist only. (6) Hyponatremia Current Visit: Yes Status: Acute Assessment and plan: Acute hyponatremia w/sodium of 135 on admission likely d/t poor intake, nausea, vomiting, and diarrhea. Patient received two 1L 0.9 boluses in ED. Monitor f/u labs for improvement. Supplement if warranted. (7) Hypokalemia Current Visit: Yes Status: Acute Assessment and plan: Acute hypokalemia w/potassium of 3.4 on admission. Likely d/t poor intake, nausea, vomiting, and diarrhea. 40 mEq potassium elixir ordered once. Monitor f/u labs. Continuous cardiac telemetry. (8) CHF (congestive heart failure) Current Visit: Yes Status: Chronic Assessment and plan: Recent dx of CHF. Echocardiogram on 05/28/19 shows LVEF of 60-65%, normal LV chamber size and function, asymmetric hypertrophy of the basal septum, and atypical septal motion consistent with bundle branch block. 1.5L daily fluid restriction. Continuous cardiac telemetry. Continue pts. Lasix and hydrochlorothiazide. Strict I&O. Qualifiers: Heart failure type: unspecified Heart failure chronicity: acute Qualified Code(s): I50.9 - Heart failure, unspecified (9) CKD (chronic kidney disease) stage 3, GFR 30-59 ml/min Current Visit: Yes Status: Chronic Assessment and plan: Hx of CKD. Currently stage III w/GFR of 40 and creatinine of 1.29. Strict I&O. Patient received two 1L boluses in ED. Monitor f/u labs. Avoid nephrotoxins. (10) HTN (hypertension) Current Visit: Yes Status: Chronic Assessment and plan: Hx of chronic HTN. Monitor pt. and VS. Continue pts. Metoprolol XL, lisinopril, Norvasc, and hydrochlorothiazide. Qualifiers: Hypertension type: essential hypertension Qualified Code(s): I10 - Essential (primary) hypertension (11) HLD (hyperlipidemia) Current Visit: Yes Status: Chronic Assessment and plan: Hx of chronic HLD. Lipid panel in a.m. labs. Continue pts. Lipitor. Qualifiers: Hyperlipidemia type: pure hypercholesterolemia Qualified Code(s): E78.00 - Pure hypercholesterolemia, unspecified; E78.0 - Pure hypercholesterolemia (12) Anxiety and depression Current Visit: Yes Status: Chronic Assessment and plan: Hx of chronic anxiety and depression. Continue pts. Zoloft and Ativan (13) DVT prophylaxis Current Visit: Yes Status: Acute Assessment and plan: Heparin 5,000 units SQ Q8HR for DVT prophylaxis. Monitor pt. for signs of bleeding. - Time Spent With Patient Total time spent is greater than 50% in coordination of care (as documented) at patient's floor/unit and/or counseling patient: Greater than 35 minutes
[2019-06-03 04:51] LABS: Adenovirus Not Detected (Not Detect); Bordetella Pertussis Not Detected (Not Detect); Chlamydophila pneumoniae Not Detected (Not Detect); Coronavirus 229E Not Detected (Not Detect); Coronavirus HKU1 Not Detected (Not Detect); Coronavirus NL63 Not Detected (Not Detect); Coronavirus OC43 Not Detected (Not Detect); Human Metapneumovirus Not Detected (Not Detect); Human Rhinovirus/Enterovirus Not Detected (Not Detect); Influenza A Subtype 2009 H1 Not Detected (Not Detect); Influenza A Untypeable Not Detected (Not Detect); Influenza B Not Detected (Not Detect); Mycoplasma pneumoniae Not Detected (Not Detect); Parainfluenza Virus 1 Not Detected (Not Detect); Parainfluenza Virus 2 Not Detected (Not Detect); Parainfluenza Virus 3 Not Detected (Not Detect); Parainfluenza Virus 4 Not Detected (Not Detect); Respiratory Syncytial Virus Not Detected (Not Detect)
[2019-06-03] MEDS ORDERED: Potassium Chloride Elixir 20 MEQ/15 ML UDC PO ONE (04:56)
[2019-06-03] MEDS: *HR* Heparin 5,000 UNIT/ML VIAL SQ SCH ×3 (04:57→21:10)
[2019-06-03 05:16] LABS: Hematocrit 36.5 % (35.3-44.9); Mean Corpuscular HGB Conc 32.9 g/dL (31.6-35.5); Mean Corpuscular Hemoglobin 29.6 pg (28.0-33.3); Mean Corpuscular Volume 90.1 fL (83.0-100.0); Mean Platelet Volume 10.8 fL (9.4-12.4); Platelet Count 342 K/mcL (140-400); Red Blood Count 4.05 M/mcL (3.82-4.97); Red Cell Distribution Width 13.3 % (11.5-14.5); White Blood Count 13.4 K/mcL (4.3-11.1)
[2019-06-03] MEDS ORDERED: Potassium Chloride 20 MEQ, Lidocaine 1% 2 ML in 0.9 % Sodium Chloride 250 ML IVPB ONE (05:16)
[2019-06-03 05:28] LABS: Calcium 9.2 mg/dL (8.6-10.3); Potassium 3.1 mEq/L (3.5-5.1)
[2019-06-03 07:50] LABS: Estimated Average Glucose 169 mg/dl
[2019-06-03] MEDS: Insulin LISPRO 300 UNITS/3 ML VIAL SQ SCH ×3 (08:00→16:29)
[2019-06-03] MEDS: Lisinopril 20 MG TABLET PO SCH (08:02)
[2019-06-03] MEDS: Furosemide 40 MG TABLET PO SCH (08:03)
[2019-06-03] MEDS: Aspirin Enteric Coated 81 MG Tablet PO SCH (08:03)
[2019-06-03] MEDS: amLODIPine 5 MG TABLET PO SCH (08:03)
[2019-06-03] MEDS: Metoprolol XL (24 HR) Succ 50 MG TAB.ER.24H PO SCH (08:03)
[2019-06-03] MEDS ORDERED: hydroCHLOROthiazide 25 MG TABLET PO SCH (09:00)
[2019-06-03] MEDS: *HR* SitaGLIPtin 25 MG TABLET PO SCH (12:53)
--- NOTE | 2019-06-03 19:22 | Internal Med Progress Note ---
Hospitalist Progress Note - Encounter Date of Encounter: 06/03/19 Time of Encounter: 09:45 - Subjective Interval History: Ms Chan appears to attribute her nausea vomiting and diarrhea to since starting metformin which she has self discontinued. She reports poor appetite and generalized fatigue and malaise. Her daughter [place] can be reached at [phone]. GEN: Denies fever, chills or malaise HEENT: Denies headache blurriness, or dysphagia RESP: Denies SOB or cough CV: Denies chest pain or palpitations GI: reports Nausea, vomiting, diarrhea Reviewed current in hospital medications with modifications see orders Reviewed Routine labs - Exam Vitals: Temp Pulse Resp BP Pulse Ox 98 F 55 17 111/61 93 06/03/19 18:42 06/03/19 18:42 06/03/19 18:42 06/03/19 18:42 06/03/19 18:42 Exam: GEN: NAD, A&O x 3, Pleasant and conversant, 2 daughters at the bedside SKIN: [place] warm acyanotic not jaundice HEART: RRR, 2/6 systolic murmur appreciated LUNGS: CTA no wheeze or crackles, overall non labored ABDOMEN; Soft, non tender or distended, BS x 4 normactive EXT: No LE edema, Pedal pulses 1+, radial pulses 2+ PSYCH: Mood and affect is appropriate - Assessment and Plan (1) Leukocytosis Current Visit: Yes Status: Acute Assessment and Plan: Acute leukocytosis w/WBC of 15.4 on admission. U/A negative for UTI. CXR shows no acute disease. Respiratory infection panel ordered which was negative. Blood cultures ordered. Legionella and strep pneumoniae antigens ordered were also negative likely reactive in the setting of dehydration and diarrheal illness. She is afebrile we will trend (2) Nausea and vomiting Current Visit: Yes Status: Acute Assessment and Plan: Patient attributes to metformin will hold his medication and antinausea medicine ordered (3) Diarrhea Current Visit: Yes Status: Acute Assessment and Plan: Patient attributes to metformin will monitor output, 1 document stool so far will monitor clinically correlate (4) Hyponatremia Current Visit: Yes Status: Acute Assessment and Plan: Results sodium is 137 secondary to poor intake (5) Hypokalemia Current Visit: Yes Status: Acute Assessment and Plan: Continue to supplement orally potassium is 3.1 in the setting of diarrhea illness (6) CKD (chronic kidney disease) stage 3, GFR 30-59 ml/min Current Visit: Yes Status: Chronic Assessment and Plan: Serum creatinine improved to 1.29 on admission to 1.14 we will trend (7) HTN (hypertension) Current Visit: Yes Status: Chronic Assessment and Plan: Normotensive lisinopril, we will hold hctz (8) HLD (hyperlipidemia) Current Visit: Yes Status: Chronic Assessment and Plan: Continue atorvastatin (9) CHF (congestive heart failure) Current Visit: Yes Status: Chronic Assessment and Plan: She does appear dry on exam continue home dose Lasix, lisinopril, we will hold hctz (10) Weakness Current Visit: Yes Status: Acute Assessment and Plan: Multifactorial in the setting of diarrheal illness nausea and vomiting hopefully should improve as her nutrition improved (11) DVT prophylaxis Current Visit: Yes Status: Acute Assessment and Plan: Heparin subcutaneous - Time Spent with Patient Total time spent is greater than 50% in coordination of care (as documented) at patient's floor/unit and/or counseling patient: Internal Medicine: Result - Labs CBC & Chem 7: 06/03/19 04:53 06/03/19 04:53 Labs: Short CBC 06/02/19 06/03/19 Range/Units 22:34 04:53 WBC 15.4 H D 13.4 H (4.3-11.1) K/mcL Hgb 13.6 D 12.0 D (11.5-15.4) g/dL Hct 40.0 36.5 (35.3-44.9) % Plt Count 371 342 (140-400) K/mcL Neutrophils # 11.5 H (1.6-8.9) K/mcL BMP 06/02/19 06/03/19 22:34 04:53 Sodium 135 L 137 Potassium 3.4 L 3.1 L Chloride 92 L 97 L Carbon Dioxide 28 31 H BUN 48 H 49 H Creatinine 1.29 H 1.14 Glucose 196 H 132 H Calcium 10.0 9.2 Urine 06/02/19 Range/Units 22:02 Urine Color Yellow (Yellow) Urine Clarity Clear (Clear) Urine pH 5.0 (5.0-8.0) pH Units Ur Specific [place] 1.020 (1.010-1.025) Urine Protein Negative (Neg-Trace) mg/dL Urine Glucose (UA) Normal (Normal) mg/dL - Impressions Impressions Head CT 06/02/19 22:25 IMPRESSION: No acute intracranial abnormality. Small amount of fluid within the right sphenoid sinus. Correlation for acute sinusitis is recommended. D/ / Ching Carmona Cha, MD / Ching Carmona Cha, MD Interpreting Provider: Ching Carmona Cha, MD Chest X-Ray 06/03/19 01:13 IMPRESSION: No acute disease. D/ / Nikko Cardoso MD / Nikko Cardoso MD Interpreting Provider: Nikko Cardoso MD Consult Discharge Plan - Plan Referrals: Jerry De Leon DO [Primary Care Provider] - (1) Leukocytosis Qualifiers: Leukocytosis type: other Qualified Code(s): D72.828 - Other elevated white blood cell count (2) Nausea and vomiting Qualifiers: Vomiting type: unspecified Vomiting Intractability: non-intractable Qualified Code(s): R11.2 - Nausea with vomiting, unspecified (3) Diarrhea Qualifiers: Diarrhea type: unspecified type Qualified Code(s): R19.7 - Diarrhea, unspecified (7) HTN (hypertension) Qualifiers: Hypertension type: essential hypertension Qualified Code(s): I10 - Essential (primary) hypertension (8) HLD (hyperlipidemia) Qualifiers: Hyperlipidemia type: pure hypercholesterolemia Qualified Code(s): E78.00 - Pure hypercholesterolemia, unspecified; E78.0 - Pure hypercholesterolemia (9) CHF (congestive heart failure) Qualifiers: Heart failure type: unspecified Heart failure chronicity: acute Qualified Code(s): I50.9 - Heart failure, unspecified
[2019-06-03] MEDS ORDERED: Insulin LISPRO 300 UNITS/3 ML VIAL SQ SCH (21:00)
[2019-06-04] MEDS: *HR* Heparin 5,000 UNIT/ML VIAL SQ SCH (05:05)
[2019-06-04 06:31] LABS: Hematocrit 36.6 % (35.3-44.9); Hemoglobin 11.9 g/dL (11.5-15.4); Mean Corpuscular HGB Conc 32.5 g/dL (31.6-35.5); Mean Corpuscular Hemoglobin 29.7 pg (28.0-33.3); Mean Corpuscular Volume 91.3 fL (83.0-100.0); Mean Platelet Volume 11.3 fL (9.4-12.4); Platelet Count 306 K/mcL (140-400); Red Blood Count 4.01 M/mcL (3.82-4.97); Red Cell Distribution Width 13.3 % (11.5-14.5); White Blood Count 10.9 K/mcL (4.3-11.1)
[2019-06-04 06:50] LABS: Chol/HDL Ratio 2.6 (0-4.9); Magnesium 1.9 mg/dL (1.6-2.6)
[2019-06-04 06:52] LABS: Calcium 9.4 mg/dL (8.6-10.3); Potassium 3.2 mEq/L (3.5-5.1)
[2019-06-04] MEDS: Lisinopril 20 MG TABLET PO SCH (07:55)
[2019-06-04] MEDS: Aspirin Enteric Coated 81 MG Tablet PO SCH (07:55)
[2019-06-04] MEDS: Furosemide 40 MG TABLET PO SCH (07:56)
[2019-06-04] MEDS: *HR* SitaGLIPtin 25 MG TABLET PO SCH (07:56)
[2019-06-04] MEDS: Metoprolol XL (24 HR) Succ 50 MG TAB.ER.24H PO SCH (07:56)
[2019-06-04] MEDS: amLODIPine 5 MG TABLET PO SCH (07:56)
[2019-06-04] MEDS: Insulin LISPRO 300 UNITS/3 ML VIAL SQ SCH ×2 (07:57→12:10)
[2019-06-04 11:15] VITALS: BP 109/65
--- NOTE | 2019-06-04 13:25 | Discharge Summary ---
- NOTES TO OUTPATIENT PROVIDER Notes to Outpatient Provider: Post hospital discharge for nausea vomiting diarrhea attributed to metformin. Was started on Januvia will need dose titration if needed. Patient noted to be in grief since two weeks ago will need close follow-up Orders not resulted at time of discharge: Pending orders 06/03/19 01:57 Culture,Blood [] Stat Date of Encounter: 06/04/19 Time of Encounter: 13:23 - Discharge Diagnosis (1) Leukocytosis Priority: Primary Status: Acute Assessment and Plan: Acute leukocytosis w/WBC of 15.4 on admission. U/A negative for UTI. CXR shows no acute disease. Respiratory infection panel ordered which was negative. Blood cultures ordered. Legionella and strep pneumoniae antigens ordered were also negative likely reactive in the setting of dehydration and diarrheal illness. She is afebrile we will trend WBC at discharge 10.9 Qualifiers: Leukocytosis type: other Qualified Code(s): D72.828 - Other elevated white blood cell count (2) Nausea and vomiting Priority: Primary Status: Acute Assessment and Plan: Patient attributes to metformin will hold his medication and antinausea medicine ordered, resolved since stopping metformin Qualifiers: Vomiting type: unspecified Vomiting Intractability: non-intractable Qualified Code(s): R11.2 - Nausea with vomiting, unspecified (3) Diarrhea Priority: Primary Status: Acute Assessment and Plan: Patient attributes to metformin will monitor output, 1 document stool so far will monitor clinically correlate resolved since stopping metformin Qualifiers: Diarrhea type: unspecified type Qualified Code(s): R19.7 - Diarrhea, unspecified (4) Hyponatremia Priority: Primary Status: Acute Assessment and Plan: Results sodium is 137 secondary to poor intake (5) Hypokalemia Priority: Primary Status: Acute Assessment and Plan: Continue to supplement orally potassium is 3.1 in the setting of diarrhea illness, potassium still low at 3.2 with sent home on oral potassium for the next 2 weeks (6) CKD (chronic kidney disease) stage 3, GFR 30-59 ml/min Priority: Secondary Status: Chronic Assessment and Plan: Serum creatinine improved to 1.29 on admission to 1.14 at discharge, prerenal from hypovolemia from volume depletion from her diarrhea and nausea and vomiting (7) HTN (hypertension) Priority: Secondary Status: Chronic Assessment and Plan: Normotensive resume home meds Qualifiers: Hypertension type: essential hypertension Qualified Code(s): I10 - Essential (primary) hypertension (8) HLD (hyperlipidemia) Priority: Secondary Status: Chronic Assessment and Plan: Continue atorvastatin Qualifiers: Hyperlipidemia type: pure hypercholesterolemia Qualified Code(s): E78.00 - Pure hypercholesterolemia, unspecified; E78.0 - Pure hypercholesterolemia (9) CHF (congestive heart failure) Priority: Secondary Status: Chronic Assessment and Plan: She does appear dry on exam continue home dose Lasix, lisinopril, Qualifiers: Heart failure type: unspecified Heart failure chronicity: acute Qualified Code(s): I50.9 - Heart failure, unspecified (10) Weakness Priority: Primary Status: Acute Assessment and Plan: Multifactorial in the setting of diarrheal illness nausea and vomiting hopefully should improve as her nutrition improved (11) DVT prophylaxis Priority: Secondary Status: Acute Assessment and Plan: Heparin subcutaneous discharge today (12) Grief Priority: Primary Status: Acute Assessment and Plan: Patient today at discharge was very tearful stating she is sad to go home because she recently lost her of 60 years 2 weeks ago. Patient appears to be in physiologic grief she denies any sense of loss of's self worth or guilt. She will need outpatient follow-up Hospital course: Ms. Chan is a 78 year old female was hospitalized with nausea vomiting diarrhea attributed to metformin. Resolved with discontinuation of metformin. At discharge patient reports grief citing 2 weeks ago denies any sense of loss of self worth or guilt. She admits to having good support system with her family-kids. Will need outpatient follow-up. Patient tolerated Januvia so far which will be her new antidiabetic medication she may need dose titration up - Time Spent with Patient Total time spent providing and/or coordinating discharge services: - Discharge Medications Prescriptions: New LORazepam [Ativan] 0.5 mg PO TID PRN 7 Days #21 tablet PRN Reason: Anxiety SitaGLIPtin [Januvia] 50 mg PO DAILY #30 tablet Potassium Chloride 20 meq PO DAILY #14 tab.er.prt Continued Metoprolol Succinate [Toprol Xl] 50 mg PO DAILY Lisinopril [Zestril] 40 mg PO DAILY Aspirin [Lo-Dose Aspirin EC] 81 mg PO DAILY Calcium Carbonate [Calcium] 500 mg PO DAILY Atorvastatin [Lipitor] 40 mg PO HS #30 tablet amLODIPine [Norvasc] 10 mg PO DAILY #60 tablet Sertraline [Zoloft] 25 mg PO DAILY #30 tablet Furosemide [Lasix] 40 mg PO DAILY #30 tablet Discontinued hydroCHLOROthiazide [Hydrochlorothiazide] 25 mg PO DAILY Home Medications: Aspirin [Lo-Dose Aspirin EC] 81 mg PO DAILY 05/28/19 [History] Calcium Carbonate [Calcium] 500 mg PO DAILY 05/28/19 [History] Lisinopril [Zestril] 40 mg PO DAILY 05/28/19 [History] Metoprolol Succinate [Toprol Xl] 50 mg PO DAILY 05/28/19 [History] Atorvastatin [Lipitor] 40 mg PO HS #30 tablet 05/30/19 [Rx] Furosemide [Lasix] 40 mg PO DAILY #30 tablet 05/30/19 [Rx] Sertraline [Zoloft] 25 mg PO DAILY #30 tablet 05/30/19 [Rx] amLODIPine [Norvasc] 10 mg PO DAILY #60 tablet 05/30/19 [Rx] LORazepam [Ativan] 0.5 mg PO TID PRN 7 Days #21 tablet 06/04/19 [Rx] Potassium Chloride 20 meq PO DAILY #14 tab.er.prt 06/04/19 [Rx] SitaGLIPtin [Januvia] 50 mg PO DAILY #30 tablet 06/04/19 [Rx] Allergies/Adverse Reactions: Allergy/AdvReac Type Severity Reaction Status Date / Time Penicillins Allergy Hives Verified 06/03/19 13:53 Date of admission: 06/03/19 00:10 Primary care physician: Jerry Patel Colopy Consults: 06/03/19 04:07 Consult to [employer] [CONS] Routine Reason for SW Consult: Please assess patient for possible home needs for post-discharge planning. 06/03/19 04:09 Consult to Nutrition [CONS] Routine Comment: Consulting Provider: NUTRITION Reason for Dietary Consult: PO Supplementation Discharging clinician: Zeyad Bobo Anticipated date of discharge: 06/04/19 - Constitutional Vitals: Temp Pulse Resp BP Pulse Ox 97.7 F 53 16 109/65 95 06/04/19 11:10 06/04/19 11:10 06/04/19 11:10 06/04/19 11:10 06/04/19 11:10 General appearance: Present: cooperative, mild distress (Nausea), A&O X 3, pleasant, obese, answers questions appropriately Exam: GEN: NAD, A&O x 3, Pleasant and conversant although tearful SKIN: [place] warm acyanotic not jaundice HEART: RRR, 2/6 systolic murmur LUNGS: CTA no wheeze or crackles, overall non labored ABDOMEN; Soft, non tender or distended, BS x 4 normactive EXT: No LE edema, Pedal pulses 1+, radial pulses 2+ PSYCH: Mood depressed and affect flat - Patient Status Disposition: Home, Self-Care Condition: Good Functional capacity at discharge: independent ambulation Overall status at discharge: patient is progressing back to baseline - Discharge Instructions Follow Up With: Jerry De Leon DO [Primary Care Provider] - - Diet and Activity Activity: resume usual activities as tolerated Diet: diabetic diet, low fat, low cholesterol, low salt diet
--- NOTE | 2019-06-04 14:42 | Physician Discharge Referral ---
Home Health/Hosp Referral Info Transfer to: Home Health Provider in Charge Post Discharge: PCP - Diagnosis (1) Leukocytosis Priority: Primary Status: Acute (2) Nausea and vomiting Priority: Primary Status: Acute (3) Diarrhea Priority: Primary Status: Acute (4) Hyponatremia Priority: Secondary Status: Acute (5) Hypokalemia Priority: Secondary Status: Acute (6) CKD (chronic kidney disease) stage 3, GFR 30-59 ml/min Priority: Primary Status: Chronic (7) HTN (hypertension) Priority: Primary Status: Chronic (8) HLD (hyperlipidemia) Priority: Primary Status: Chronic (9) CHF (congestive heart failure) Priority: Primary Status: Chronic (10) Weakness Priority: Primary Status: Acute (11) DVT prophylaxis Priority: Primary Status: Acute (12) Grief Priority: Primary Status: Acute - Respiratory Orders Smoking Cessation: Smoking cessation has been advised. For more information, call the [employer] Tobacco Quit Line at 1-581-BLBC-NOW. - Diet/Nutrition Diet/Nutrition Orders: Cardiac - Activity Activity Orders: Up ad nathan - Services Needed Following services are medically necessary services: Home Health Aide, Physical Therapy - Transfer Medications Prescriptions: LORazepam [Ativan] 0.5 mg PO TID PRN 7 Days #21 tablet PRN Reason: Anxiety SitaGLIPtin [Januvia] 50 mg PO DAILY #30 tablet Potassium Chloride 20 meq PO DAILY #14 tab.er.prt Home Medications: Aspirin [Lo-Dose Aspirin EC] 81 mg PO DAILY 05/28/19 [History] Calcium Carbonate [Calcium] 500 mg PO DAILY 05/28/19 [History] Lisinopril [Zestril] 40 mg PO DAILY 05/28/19 [History] Metoprolol Succinate [Toprol Xl] 50 mg PO DAILY 05/28/19 [History] Atorvastatin [Lipitor] 40 mg PO HS #30 tablet 05/30/19 [Rx] Furosemide [Lasix] 40 mg PO DAILY #30 tablet 05/30/19 [Rx] Sertraline [Zoloft] 25 mg PO DAILY #30 tablet 05/30/19 [Rx] amLODIPine [Norvasc] 10 mg PO DAILY #60 tablet 05/30/19 [Rx] LORazepam [Ativan] 0.5 mg PO TID PRN 7 Days #21 tablet 06/04/19 [Rx] Potassium Chloride 20 meq PO DAILY #14 tab.er.prt 06/04/19 [Rx] SitaGLIPtin [Januvia] 50 mg PO DAILY #30 tablet 06/04/19 [Rx] Allergies/Adverse Reactions: Allergy/AdvReac Type Severity Reaction Status Date / Time Penicillins Allergy Hives Verified 06/03/19 13:53 Certification: Further, I certify that my clinical findings support that this patient is homebound (i.e. absences from home require considerable and taxing effort and are for medical reasons or latter-day services or infrequently or short duration when for other reasons) because: Homebound Reason: Leaving home requires considerable and taxing effort due to condition Attestation: My signature below is to certify that this patient is under my care and that I, or nurse practitioner, or a physician's therapeutic recreation assistant working with me, has a [id number] encounter with this patient.
--- NOTE | 2019-06-04 17:49 | Electrocardiograph Report ---
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
== END 2019-06-04 16:33 | disposition home or self-care (01) ==
LOC: EMEROOARM 21:48 → 2ANU 21:48 → SUATTDRO 06-03 00:10 → 2ANU 06-03 01:08
PROVIDERS: ADMIT Internal Medicine; ATTEND Pharmacist